=== PATIENT | female | born 1965 | race American Indian/Alaskan Native ===

== ENCOUNTER 2016-06-24 18:24 | Emergency (ER) | payer MEDICAID ==
[2016-06-24 19:56] VITALS: BP 158/94
[2016-06-24] MEDS ORDERED: TYLENOL PO ONE (22:41)
--- NOTE | 2016-06-25 02:22 | Emergency Department Report ---
- General Chief Complaint: Upper Respiratory Infection Stated Complaint: SORE THROAT Time Seen by Provider: 06/25/16 01:34 Source: patient Mode of arrival: Ambulatory Limitations: No Limitations - History of Present Illness Initial Comments: 50-year-old female past medical history asthma, diabetes, hypertension presents with complaint of 3 days of sinus congestion, sore throat, achiness generalized , runny nose. Patient states that she has family member at home with similar symptoms. Patient denies any chest pain palpitations, states she felt slightly short of breath yesterday but has since resolved now primarily complaining of nasal congestion and sore throat. Patient denies any nausea or vomiting, denies any dysuria, states she feels sinus pressure. MD Complaint: cough, sore throat, nasal congestion, sinus pain Onset/Timin -: days(s) Severity: moderate Quality: aching Improves With: nothing Worsens With: nothing Context: sick contacts Associated Symptoms: cough - Related Data Home Medications Medication Instructions Recorded Confirmed Last Taken Albuterol Sulfate [Ventolin HFA] 2 puff IH Q4H PRN 05/19/15 05/19/15 Unknown Carbidopa/Levodopa ER 50-200 1 each PO BID 05/19/15 05/19/15 Unknown [Sinemet ER 50/200] Fenofibrate [Tricor] 145 mg PO QDAY 05/19/15 05/19/15 Unknown Fluticasone Propionate [Flovent 50 mcg IH DAILY 05/19/15 05/19/15 Unknown Diskus] Furosemide [Lasix TAB] 40 mg PO QDAY 05/19/15 05/19/15 Unknown Hydroxyzine HCl 10 mg PO BID PRN 05/19/15 05/19/15 Unknown Lisinopril [Zestril TAB] 20 mg PO QDAY 05/19/15 05/19/15 Unknown Phentermine/Topiramate [Qsymia 1 each PO QDAY 05/19/15 05/19/15 Unknown 3.75 mg-23 mg] Ranitidine HCl [Acid Counselor Aid] 150 mg PO DAILY 05/19/15 05/19/15 Unknown metFORMIN [Glucophage] 500 mg PO BID 05/19/15 05/19/15 Unknown Copaxone (Nf) 20 mg SQ DAILY 05/20/15 05/20/15 05/18/15 10:00 20MG Previous Rx's Medication Instructions Recorded Last Taken Type Prednisone [predniSONE 10 mg 10 mg PO .TAPER #1 tab.ds.pk 05/25/15 Unknown Rx (6-Day Pack, 21 Tabs)] ALBUTEROL Inhaler [ProAir HFA 1 puff IH Q4H PRN #1 inha 06/25/16 Unknown Rx Inhaler] ALBUTEROL NEB's [Proventil 0.083% 2.5 mg IH TID PRN #1 box 06/25/16 Unknown Rx NEBS] Amoxicillin/K Clav Tab [Augmentin 1 tab PO Q12HR #14 tab 06/25/16 Unknown Rx 875 mg] Azelastine 0.1% (Nf) [Astelin (Nf)] 137 mcg NS QDAY PRN #1 bottle 06/25/16 Unknown Rx Fluticasone [Flonase] 1 spray NS QDAY #1 bottle 06/25/16 Unknown Rx Ibuprofen [Motrin] 400 mg PO Q8H PRN #20 tablet 06/25/16 Unknown Rx Allergies Allergy/AdvReac Type Severity Reaction Status Date / Time No Known Allergies Allergy Verified 04/07/14 21:17 ED Review of Systems ROS: Stated complaint: SORE THROAT Other details as noted in HPI Constitutional: denies: chills, fever Eyes: denies: eye pain, eye discharge, vision change ENT: congestion. denies: ear pain, throat pain Respiratory: denies: cough, shortness of breath, wheezing Cardiovascular: denies: chest pain, palpitations Endocrine: no symptoms reported Gastrointestinal: denies: abdominal pain, nausea, diarrhea Genitourinary: denies: urgency, dysuria, discharge Musculoskeletal: denies: back pain, joint swelling, arthralgia Skin: denies: rash, lesions Neurological: denies: headache, weakness, paresthesias Psychiatric: denies: anxiety, depression Hematological/Lymphatic: denies: easy bleeding, easy bruising ED Past Medical Hx - Past Medical History Hx Hypertension: Yes Hx CVA: Yes Hx Diabetes: Yes Hx Deep Vein Thrombosis: No Hx Pulmonary Embolism: No Hx GERD: Yes Hx Arthritis: Yes Hx Headaches / Migraines: Yes Hx Psychiatric Treatment: Yes (Depression) Hx Asthma: Yes Hx COPD: No Hx Tuberculosis: No Hx HIV: No Additional medical history: Hyperlipidemia, Multiple Sclerosis, Sleep apnea, MVP , Restless Leg Syndrome - Surgical History Hx Coronary Stent: No Hx Open Heart Surgery: No Hx Pacemaker: No Hx Internal Defibrillator: No Hx Cholecystectomy: No Hx Appendectomy: No Hx Breast Surgery: No Additional Surgical History: C-sections X2 - Social History Smoking Status: Never Smoker Substance Use Type: None - Medications Home Medications: Home Medications Medication Instructions Recorded Confirmed Last Taken Type Albuterol Sulfate [Ventolin HFA] 2 puff IH Q4H PRN 05/19/15 05/19/15 Unknown History Carbidopa/Levodopa ER 50-200 1 each PO BID 05/19/15 05/19/15 Unknown History [Sinemet ER 50/200] Fenofibrate [Tricor] 145 mg PO QDAY 05/19/15 05/19/15 Unknown History Fluticasone Propionate [Flovent 50 mcg IH DAILY 05/19/15 05/19/15 Unknown History Diskus] Furosemide [Lasix TAB] 40 mg PO QDAY 05/19/15 05/19/15 Unknown History Hydroxyzine HCl 10 mg PO BID PRN 05/19/15 05/19/15 Unknown History Lisinopril [Zestril TAB] 20 mg PO QDAY 05/19/15 05/19/15 Unknown History Phentermine/Topiramate [Qsymia 1 each PO QDAY 05/19/15 05/19/15 Unknown History 3.75 mg-23 mg] Ranitidine HCl [Acid Counselor Aid] 150 mg PO DAILY 05/19/15 05/19/15 Unknown History metFORMIN [Glucophage] 500 mg PO BID 05/19/15 05/19/15 Unknown History Copaxone (Nf) 20 mg SQ DAILY 05/20/15 05/20/15 05/18/15 10:00 History 20MG Prednisone [predniSONE 10 mg 10 mg PO .TAPER #1 tab.ds.pk 05/25/15 Unknown Rx (6-Day Pack, 21 Tabs)] ALBUTEROL Inhaler [ProAir HFA 1 puff IH Q4H PRN #1 inha 06/25/16 Unknown Rx Inhaler] ALBUTEROL NEB's [Proventil 0.083% 2.5 mg IH TID PRN #1 box 06/25/16 Unknown Rx NEBS] Amoxicillin/K Clav Tab [Augmentin 1 tab PO Q12HR #14 tab 06/25/16 Unknown Rx 875 mg] Azelastine 0.1% (Nf) [Astelin (Nf)] 137 mcg NS QDAY PRN #1 bottle 06/25/16 Unknown Rx Fluticasone [Flonase] 1 spray NS QDAY #1 bottle 06/25/16 Unknown Rx Ibuprofen [Motrin] 400 mg PO Q8H PRN #20 tablet 06/25/16 Unknown Rx ED Physical Exam - General Limitations: No Limitations General appearance: alert, in no apparent distress - Head Head exam: Present: atraumatic, normocephalic - Eye Eye exam: Present: normal appearance, PERRL, EOMI - ENT ENT exam: Present: mucous membranes moist, other (rhinorrhea) - Expanded ENT Exam Expanded Ear exam: Present: normal external inspection Mouth exam: Present: normal external inspection Teeth exam: Present: normal inspection Throat exam: Positive: normal inspection - Neck Neck exam: Present: normal inspection, full ROM - Respiratory Respiratory exam: Present: normal lung sounds bilaterally. Absent: respiratory distress - Cardiovascular Cardiovascular Exam: Present: regular rate, normal rhythm. Absent: systolic murmur, diastolic murmur, rubs, gallop - GI/Abdominal GI/Abdominal exam: Present: soft, normal bowel sounds - Extremities Exam Extremities exam: Present: normal inspection - Back Exam Back exam: Present: normal inspection - Neurological Exam Neurological exam: Present: alert, oriented X3 - Psychiatric Psychiatric exam: Present: normal affect, normal mood - Skin Skin exam: Present: warm, dry, intact, normal color. Absent: rash ED Course Vital Signs 06/24/16 06/24/16 19:55 20:15 Temperature 99 F 99 F Pulse Rate 90 90 Respiratory 20 18 Rate Blood Pressure 158/94 Blood Pressure 158/94 [Right] O2 Sat by Pulse 100 100 Oximetry ED Medical Decision Making - Medical Decision Making A/P: Acute sinusitis, URI, viral syndrome 1- Flonase, Azelastine, Motrin prn. As pt is diabetic will refrain from giving systemic steroids, will give intranasal instead for direct relief of sinus pressure 2- Augmentin BID x7 days 3- will refill albuterol inhaler and nebulizers 4- patient states she has primary care follow-up appointment this week Critical care attestation.: If time is entered above; I have spent that time in minutes in the direct care of this critically ill patient, excluding procedure time. ED Disposition Clinical Impression: Sinusitis, acute Qualifiers: Sinusitis location: frontal Recurrence: non-recurrent Qualified Code(s): J01.10 - Acute frontal sinusitis, unspecified Disposition: DISCHARGED TO HOME OR SELFCARE Is pt being admited?: No Does the pt Need Aspirin: No Condition: Stable Instructions: Sinusitis (ED) Prescriptions: ALBUTEROL Inhaler [ProAir HFA Inhaler] 1 puff IH Q4H PRN #1 inha PRN Reason: Wheezing ALBUTEROL NEB's [Proventil 0.083% NEBS] 2.5 mg IH TID PRN #1 box PRN Reason: Wheezing Amoxicillin/K Clav Tab [Augmentin 875 mg] 1 tab PO Q12HR #14 tab Azelastine 0.1% (Nf) [Astelin (Nf)] 137 mcg NS QDAY PRN #1 bottle PRN Reason: Congestion Fluticasone [Flonase] 1 spray NS QDAY #1 bottle Ibuprofen [Motrin] 400 mg PO Q8H PRN #20 tablet PRN Reason: Pain Referrals: [facility] [place] [Outside] - 3-5 Days Forms: Work/School Release Form(ED) Time of Disposition: 02:22
== END 2016-06-25 02:32 | disposition home or self-care (01) ==
LOC: ED 18:24
DX: J01.10 Acute frontal sinusitis, unspecified (principal); I10 Essential (primary) hypertension; I63.9 Cerebral infarction, unspecified; E11.9 Type 2 diabetes mellitus without complications; K21.9 Gastro-esophageal reflux disease without esophagitis; M19.90 Unspecified osteoarthritis, unspecified site; G43.909 Migraine, unspecified, not intractable, without status migrainosus; J45.909 Unspecified asthma, uncomplicated; E78.00 Pure hypercholesterolemia, unspecified
CPT/HCPCS: 87116; 87400; 87430; 99283

== ENCOUNTER 2017-06-19 17:12 | Outpatient (CLI) | payer MEDICAID ==
--- NOTE | 2017-06-19 21:20 | XRay Report ---
FINAL REPORT EXAM: XR KNEE BILAT 1-2V HISTORY: Osteoarthritis TECHNIQUE: Bilateral knees two views left and two views right PRIORS: None. FINDINGS: Left knee demonstrates medial tibiofemoral joint space narrowing and narrowing at the patellofemoral joint space. Few small marginal osteophytes are present. No evidence for joint effusion At the right knee there is mild medial tibiofemoral and patellofemoral joint space narrowing. No evidence for joint effusion There are no acute fractures or dislocations identified. IMPRESSION: Mild to moderate DJD greater on the left
== END 2017-06-19 17:13 | disposition home or self-care (01) ==
LOC: XRAY 17:12
PROVIDERS: ATTEND Orthopaedic Surgery
DX: M17.12 Unilateral primary osteoarthritis, left knee (principal)

== ENCOUNTER 2018-06-05 16:34 | Emergency (ER) | payer MEDICAID ==
--- NOTE | 2018-06-05 16:43 | Emergency Department Report ---
Chief Complaint: Upper Respiratory Infection Stated Complaint: HPB/HIGH GLUCOSE/VOMITING/HEADACHE Time Seen by Provider: 06/05/18 16:42 - HPI History of Present Illness: MSE completed To ED for treatment MSE screening note: Focused history and physical exam performed. Due to findings the following was ordered: ED Medical Decision Making - Lab Data Result diagrams: 06/05/18 17:52 ED Disposition for MSE Condition: Stable
[2018-06-05] MEDS ORDERED: ZOFRAN IV ONE (17:11)
[2018-06-05] MEDS ORDERED: MORPHINE IV ONE ×2 (17:11→18:41)
--- NOTE | 2018-06-05 17:14 | Emergency Department Report ---
HPI - General Chief Complaint: Upper Respiratory Infection Time Seen by Provider: 06/05/18 16:42 - HPI HPI: 52-year-old Afro-[place] female presents to the emergency department from home with complaint of nausea, vomiting, diarrhea, headache and body aches. The patient says that she woke up around 3 AM with the nausea and vomiting. She checked her blood sugar and blood pressure and she had elevated blood pressure. The blood sugar was slightly elevated "for me" at about 160. Throughout the morning and afternoon the patient has been experiencing some diarrhea, generalized headache and body aches mostly in the back and legs. She tried some type of nausea medication without any relief. She has a past medical history of asthma, COPD, CVA, diabetes, migraines, depression, multiple sclerosis. She has a primary care physician, Dr. Goncalves, and [facility] but she has not seen them regarding her symptoms. No recent travel or sick contacts at home. ED Past Medical Hx - Past Medical History Previous Medical History?: Yes Hx Hypertension: Yes Hx CVA: Yes Hx Diabetes: Yes Hx Deep Vein Thrombosis: No Hx Pulmonary Embolism: No Hx GERD: Yes Hx Arthritis: Yes Hx Headaches / Migraines: Yes Hx Psychiatric Treatment: Yes (Depression) Hx Asthma: Yes Hx COPD: No Hx Tuberculosis: No Hx HIV: No Additional medical history: Hyperlipidemia, Multiple Sclerosis, Sleep apnea, MVP, Restless Leg Syndrome - Surgical History Past Surgical History?: Yes Hx Coronary Stent: No Hx Open Heart Surgery: No Hx Pacemaker: No Hx Internal Defibrillator: No Hx Cholecystectomy: No Hx Appendectomy: No Hx Breast Surgery: No Additional Surgical History: C-sections X2 - Social History Smoking Status: Never Smoker Substance Use Type: None - Medications Home Medications: Home Medications Medication Instructions Recorded Confirmed Last Taken Type Albuterol Sulfate [Ventolin HFA] 2 puff IH Q4H PRN 05/19/15 05/19/15 Unknown History Carbidopa/Levodopa ER 50-200 1 each PO BID 05/19/15 05/19/15 Unknown History [Sinemet ER 50/200] Fenofibrate [Tricor] 145 mg PO QDAY 05/19/15 05/19/15 Unknown History Fluticasone Propionate [Flovent 50 mcg IH DAILY 05/19/15 05/19/15 Unknown History Diskus] Furosemide [Lasix TAB] 40 mg PO QDAY 05/19/15 05/19/15 Unknown History Lisinopril [Zestril TAB] 20 mg PO QDAY 05/19/15 05/19/15 Unknown History Phentermine/Topiramate [Qsymia 1 each PO QDAY 05/19/15 05/19/15 Unknown History 3.75 mg-23 mg] Ranitidine HCl [Acid Associate Material Handler] 150 mg PO DAILY 05/19/15 05/19/15 Unknown History hydrOXYzine HCl [Hydroxyzine HCl] 10 mg PO BID PRN 05/19/15 05/19/15 Unknown History metFORMIN [Glucophage] 500 mg PO BID 05/19/15 05/19/15 Unknown History Copaxone (Nf) 20 mg SQ DAILY 05/20/15 05/20/15 05/18/15 10:00 History 20MG Prednisone [predniSONE 10 mg 10 mg PO .TAPER #1 tab.ds.pk 05/25/15 Unknown Rx (6-Day Pack, 21 Tabs)] ALBUTEROL Inhaler (OR & NICU) 1 puff IH Q4H PRN #1 inha 06/25/16 Unknown Rx [ProAir HFA Inhaler] ALBUTEROL NEB's [Proventil 0.083% 2.5 mg IH TID PRN #1 box 06/25/16 Unknown Rx NEBS] Amoxicillin/K Clav Tab [Augmentin 1 tab PO Q12HR #14 tab 06/25/16 Unknown Rx 875 mg] Azelastine 0.1% (Nf) [Astelin (Nf)] 137 mcg NS QDAY PRN #1 bottle 06/25/16 Unknown Rx Fluticasone [Flonase] 1 spray NS QDAY #1 bottle 06/25/16 Unknown Rx Ibuprofen [Motrin] 400 mg PO Q8H PRN #20 tablet 06/25/16 Unknown Rx HYDROcodone/APAP 5-325 [Wilberforce 1 each PO Q6HR PRN #10 tablet 06/05/18 Unknown Rx 5/325] Ondansetron [Zofran Odt] 4 mg PO Q8HR PRN #12 tab.rapdis 06/05/18 Unknown Rx Oseltamivir [Tamiflu] 75 mg PO BID #10 capsule 06/05/18 Unknown Rx ED Review of Systems ROS: Stated complaint: HPB/HIGH GLUCOSE/VOMITING/HEADACHE Other details as noted in HPI Comment: All other systems reviewed and negative Constitutional: chills. denies: fever Eyes: denies: eye pain, vision change ENT: denies: ear pain, throat pain Respiratory: denies: cough, shortness of breath Cardiovascular: denies: chest pain, palpitations Gastrointestinal: nausea, vomiting, diarrhea Genitourinary: denies: dysuria, discharge Musculoskeletal: back pain, myalgia Skin: denies: rash, change in color Neurological: headache. denies: numbness, paresthesias Physical Exam - Physical Exam Vital Signs: Vital Signs 06/05/18 16:50 Temperature 99.9 F H Pulse Rate 122 H Respiratory 20 Rate Blood Pressure 182/89 O2 Sat by Pulse 96 Oximetry Physical Exam: GENERAL: The patient is well-developed well-nourished. HEENT: Normocephalic. Atraumatic. Patient has moist mucous membranes. EYES: Extraocular motions are intact. Pupils are equal and reactive to light bilaterally. No nystagmus. NECK: Supple. Trachea is midline. CHEST/LUNGS: Clear to auscultation. There is no respiratory distress noted. HEART/CARDIOVASCULAR: Regular. There is mild to moderate tachycardia. There is no obvious murmur. ABDOMEN: Abdomen is soft, nontender. Patient has normal bowel sounds. There is no abdominal distention. SKIN: Skin is warm and dry. NEURO: The patient is awake, alert, and oriented. The patient is cooperative. The patient has no focal neurologic deficits. The patient has normal speech. Cranial nerves II through XII grossly intact. MUSCULOSKELETAL: There is no tenderness or deformity. There is no limitation range of motion. There is no evidence of acute injury. ED Course Vital Signs 06/05/18 16:50 Temperature 99.9 F H Pulse Rate 122 H Respiratory 20 Rate Blood Pressure 182/89 O2 Sat by Pulse 96 Oximetry ED Medical Decision Making - Lab Data Result diagrams: 06/05/18 17:52 06/05/18 17:52 - EKG Data -: EKG Interpreted by Me EKG shows normal: sinus rhythm, axis (left axis deviation), intervals, QRS complexes (Q waves to the anterior leads, left anterior fascicular block), ST-T waves Rate: tachycardia (117 bpm) - EKG Data When compared to previous EKG there are: previous EKG unavailable Interpretation: other (sinus tachycardia, left axis deviation, Q waves to the anterior leads, left anterior fascicular block) - Radiology Data Radiology results: report reviewed CT of the head without contrast does not show any bleed, shift, mass, ischemia or any other acute process. - Medical Decision Making This patient presents to the emergency department with a complaint of nausea, vomiting, headache, body aches that started last night. Patient's labs have been unremarkable including a CBC, metabolic panel and LFTs. Patient was given IV fluid resuscitation, antiemetics and pain medication. She still continued to complain of a headache so a CT scan of the head without contrast was done that did not show any bleed, shift, mass, ischemia, or any other acute process. Eventually the patient says that she is feeling much better. Has been no there's been no further episodes of nausea or vomiting in the emergency department. She does not have any focal, motor or sensory deficits in her cranial nerves have been intact. Prior to discharge, the patient was seen a mbulatory in both appears and feels stable. All this appears consistent with a viral syndrome. It is possible, given the patient's borderline low fever, that the patient may have influenza. The patient has been given Zofran ODT and Tamiflu as a prescription. She is instructed to follow up with her primary care physician. She will return to the ER with any worsening of her symptoms or any acute distress. - Differential Diagnosis viral syndrome, influenza, gastroenteritis, food poisoning, tension headach Critical Care Time: No Critical care attestation.: If time is entered above; I have spent that time in minutes in the direct care of this critically ill patient, excluding procedure time. ED Disposition Clinical Impression: Viral syndrome Headache Qualifiers: Headache type: unspecified Headache chronicity pattern: unspecified pattern Intractability: not intractable Qualified Code(s): R51 - Headache Nausea & vomiting Qualifiers: Vomiting type: unspecified Vomiting Intractability: non-intractable Qualified Code(s): R11.2 - Nausea with vomiting, unspecified Disposition: DC-01 TO HOME OR SELFCARE Is pt being admited?: No Condition: Stable Instructions: Acute Headache (ED), Acute Nausea and Vomiting (ED), Viral Syndrome (ED) Additional Instructions: Please increase your oral rehydration. Follow up with a primary care physician in the next few days. Return to the emergency Department with any worsening of your symptoms or any acute distress. You have been prescribed a medication that can be sedating. Therefore, this medication cannot be taken prior to driving, working, being responsible for children, and cannot be mixed with alcohol of any quantity. Prescriptions: HYDROcodone/APAP 5-325 [Wilberforce 5/325] 1 each PO Q6HR PRN #10 tablet PRN Reason: Pain Ondansetron [Zofran Odt] 4 mg PO Q8HR PRN #12 tab.rapdis PRN Reason: Nausea Oseltamivir [Tamiflu] 75 mg PO BID #10 capsule Referrals: PRIMARY CARE, [Primary Care Provider] - 2-3 Days Time of Disposition: 22:11
[2018-06-05 18:11] LABS: Hematocrit 38.9 % (30.3-42.9); Hemoglobin 13.4 gm/dl (10.1-14.3); Mean Corpuscular HGB Conc 35 % (30-34); Mean Corpuscular Volume 90 fl (79-97); Platelet Count 306 K/mm3 (140-440); Red Blood Count 4.35 M/mm3 (3.65-5.03); Red Cell Distribution Width 13.2 % (13.2-15.2)
[2018-06-05 18:35] LABS: Alanine Aminotransferase 11 units/L (7-56); Albumin 3.7 g/dL (3.9-5); BUN/Creatinine Ratio 14; Blood Urea Nitrogen 7 mg/dL (7-17); Calcium 8.1 mg/dL (8.4-10.2); Hemolysis Index 10
[2018-06-05] MEDS ORDERED: REGLAN IV ONE (18:41)
[2018-06-05] MEDS ORDERED: NACL 0.9% 1000 ML 1,000 ML IV ONE ×2 (18:41→21:32)
[2018-06-05] MEDS ORDERED: TYLENOL PO ONE (19:37)
--- NOTE | 2018-06-05 20:58 | Cat Scan Report ---
FINAL REPORT EXAM: CT HEAD/BRAIN WO CON HISTORY: headache TECHNIQUE: CT was performed from the foramen magnum through the vertex in the axial plane without th e use of intravenous contrast. PRIORS: None. FINDINGS: The reagan/white matter attenuation pattern is normal. There is no mass lesion or mass effect. There ar e no abnormal extra-axial fluid collections. There is no evidence of acute intracranial hemorrhage or infarct. The ventricles are of normal size and configuration. The skull and orbits are unremarkable . The visualized paranasal sinuses are clear. IMPRESSION: Normal CT of the head.
[2018-06-05] MEDS ORDERED: TORADOL IV ONE (21:03)
[2018-06-05] MEDS ORDERED: DILAUDID IV ONE (21:03)
[2018-06-05 23:38] VITALS: BP 104/42
== END 2018-06-05 23:38 | disposition home or self-care (01) ==
LOC: ED 16:34
DX: B34.9 Viral infection, unspecified (principal); R11.2 Nausea with vomiting, unspecified; I10 Essential (primary) hypertension; E11.9 Type 2 diabetes mellitus without complications; K21.9 Gastro-esophageal reflux disease without esophagitis; M19.90 Unspecified osteoarthritis, unspecified site; G43.909 Migraine, unspecified, not intractable, without status migrainosus; F32.9 Major depressive disorder, single episode, unspecified; J45.909 Unspecified asthma, uncomplicated; E78.5 Hyperlipidemia, unspecified; G47.30 Sleep apnea, unspecified; G35 Multiple sclerosis
CPT/HCPCS: 36415; 70450; 80053; 82805; 83690; 84484; 85027; 93005; 93010; 96361; 96374; 96375; 96376; 99284; J1170; J1885; J2270; J2405; J2765; J7030

== ENCOUNTER 2019-03-23 21:21 | Inpatient (IN) | payer MEDICARE ==
[2019-03-23] MEDS ORDERED: IPRATROPIUM/ALBUTEROL SULFATE 3 ML AMPUL.NEB IH ONE (21:53)
--- NOTE | 2019-03-23 21:53 | Event Note ---
ED Screening Note Date of service: 03/23/19 Time: 21:52 ED Screening Note: 53 y o f with hx of asthma presenst with coughing and sob This initial assessment/diagnostic orders/clinical plan/treatment(s) is/are subject to change based on patients health status, clinical progression and re-assessment by fellow clinical providers in the ED. Further treatment and workup at subsequent clinical providers discretion. Patient/guardian urged not to elope from the ED as their condition may be serious if not clinically assessed and managed. Initial orders include: cxr steroids duoneb acc eval
[2019-03-23] MEDS ORDERED: guaiFENesin 200 MG TAB PO ONE (21:54)
[2019-03-23] MEDS ORDERED: methylPREDNISolone Sod Succinate 125 MG/2 ML INJ IM ONE (21:54)
--- NOTE | 2019-03-23 22:45 | XRay Report ---
CHEST 2 VIEWS INDICATION / CLINICAL INFORMATION: Shortness of breath. Headache, sore throat and productive cough. Wheezing. COMPARISON: 05/19/2015. FINDINGS: SUPPORT DEVICES: None. HEART / MEDIASTINUM: The heart size and pulmonary vasculature are normal. LUNGS / PLEURA: No significant pulmonary or pleural abnormality. No pneumothorax. ADDITIONAL FINDINGS: No significant additional findings. IMPRESSION: No acute abnormality or significant change. Signer Name: Robbie Amato MD Signed: 03/23/2019 10:41 PM Workstation Name: [id number]
[2019-03-24] MEDS ORDERED: IPRATROPIUM/ALBUTEROL SULFATE 3 ML AMPUL.NEB IH ONE ×4 (00:14→04:03)
[2019-03-24] MEDS ORDERED: methylPREDNISolone Sod Succinate 125 MG/2 ML INJ IV ONE (00:14)
[2019-03-24 00:41] LABS: Basophils # (Auto) 0.1 K/mm3 (0.0-0.1); Basophils % (Auto) 0.9 % (0.0-1.8); Eosinophils # (Auto) 0.5 K/mm3 (0.0-0.4); Eosinophils % (Auto) 4.1 % (0.0-4.3); Hemoglobin 12.6 gm/dl (10.1-14.3); Lymphocytes # (Auto) 3.4 K/mm3 (1.2-5.4); Lymphocytes % (Auto) 30.9 % (13.4-35.0); Mean Corpuscular HGB Conc 34 % (30-34); Mean Corpuscular Volume 91 fl (79-97); Monocytes # (Auto) 0.7 K/mm3 (0.0-0.8); Monocytes % (Auto) 6.2 % (0.0-7.3); Platelet Count 336 K/mm3 (140-440); Red Blood Count 4.05 M/mm3 (3.65-5.03)
[2019-03-24 01:06] LABS: Alanine Aminotransferase 17 units/L (7-56); Albumin 3.7 g/dL (3.9-5); BUN/Creatinine Ratio 17; Blood Urea Nitrogen 10 mg/dL (7-17); Calcium 8.6 mg/dL (8.4-10.2); Hemolysis Index 13
[2019-03-24] MEDS ORDERED: KETOROLAC 30 MG/1 ML INJ IV ONE (01:47)
[2019-03-24] MEDS ORDERED: MAGNESIUM SULFATE 2 GM/50 ML BAG IV ONE (03:43)
--- NOTE | 2019-03-24 03:53 | Emergency Department Report ---
ED Shortness of Breath HPI - General Chief Complaint: Adult Asthma Stated Complaint: MARTE ,SORE THROAT,DIFF BREATHING Source: patient Mode of arrival: Ambulatory Limitations: No Limitations - History of Present Illness Initial Comments: Patient is a 53-year-old -[place] female with a history of asthma, CHF, hypertension, and lar-xjvnomc-xqnrlcyzq diabetes who presented to the ED with complaint of acute onset persistent shortness of breath, nasal and sinus congestion, persistent cough with yellow sputum, persistent headache and generalized weakness for the last 1 week, worse in the last 2 days despite using her home based albuterol nebulizers and inhalers. The patient also complains of chest tightness and pressure for the last 2 days. Patient denies fever, chills, nausea, vomiting, abdominal pain, dizziness, syncope, palpitations, dysuria, urinary frequency and urgency, seizures or sore throat. MD Complaint: shortness of breath, cough, chest pain, "asthma attack" -: Sudden, days(s) (3) Severity: severe Pain Scale: 7 Quality: aching Consistency: constant Improves With: nothing, other (used her nebulizers at home with no relief) Worsens With: coughing Known History Of: asthma, diabetes Context: recent URI Associated Symptoms: denies other symptoms, chest pain, cough, sputum production Treatments Prior to Arrival: bronchodilator - Related Data Home Oxygen Therapy: No Home Medications Medication Instructions Recorded Confirmed Last Taken Albuterol Sulfate [Ventolin HFA] 2 puff IH Q4H PRN 05/19/15 05/19/15 Unknown Carbidopa/Levodopa ER 50-200 1 each PO BID 05/19/15 05/19/15 Unknown [Sinemet ER 50/200] Fenofibrate [Tricor] 145 mg PO QDAY 05/19/15 05/19/15 Unknown Fluticasone Propionate [Flovent 50 mcg IH DAILY 05/19/15 05/19/15 Unknown Diskus] Furosemide [Lasix TAB] 40 mg PO QDAY 05/19/15 05/19/15 Unknown Lisinopril [Zestril TAB] 20 mg PO QDAY 05/19/15 05/19/15 Unknown Phentermine/Topiramate [Qsymia 1 each PO QDAY 05/19/15 05/19/15 Unknown 3.75 mg-23 mg] Ranitidine HCl [Acid Front End Loader Operator] 150 mg PO DAILY 05/19/15 05/19/15 Unknown hydrOXYzine HCl [Hydroxyzine HCl] 10 mg PO BID PRN 05/19/15 05/19/15 Unknown metFORMIN [Glucophage] 500 mg PO BID 05/19/15 05/19/15 Unknown Copaxone (Nf) 20 mg SQ DAILY 05/20/15 05/20/15 05/18/15 10:00 20 MG Previous Rx's Medication Instructions Recorded Last Taken Type Prednisone [predniSONE 10 mg 10 mg PO .TAPER #1 tab.ds.pk 05/25/15 Unknown Rx (6-Day Pack, 21 Tabs)] ALBUTEROL Inhaler (OR & NICU) 1 puff IH Q4H PRN #1 inha 06/25/16 Unknown Rx [ProAir HFA Inhaler] ALBUTEROL NEB's [Proventil 0.083% 2.5 mg IH TID PRN #1 box 06/25/16 Unknown Rx NEBS] Amoxicillin/K Clav Tab [Augmentin 1 tab PO Q12HR #14 tab 06/25/16 Unknown Rx 875 mg] Azelastine 0.1% (Nf) [Astelin (Nf)] 137 mcg NS QDAY PRN #1 bottle 06/25/16 Unknown Rx Fluticasone [Flonase] 1 spray NS QDAY #1 bottle 06/25/16 Unknown Rx Ibuprofen [Motrin] 400 mg PO Q8H PRN #20 tablet 06/25/16 Unknown Rx HYDROcodone/APAP 5-325 [Bulan 1 each PO Q6HR PRN #10 tablet 06/05/18 Unknown Rx 5/325] Ondansetron [Zofran Odt] 4 mg PO Q8HR PRN #12 tab.rapdis 06/05/18 Unknown Rx Oseltamivir [Tamiflu] 75 mg PO BID #10 capsule 06/05/18 Unknown Rx Allergies Allergy/AdvReac Type Severity Reaction Status Date / Time No Known Allergies Allergy Verified 04/07/14 21:17 ED Review of Systems ROS: Stated complaint: MARTE ,SORE THROAT,DIFF BREATHING Other details as noted in HPI Constitutional: denies: chills, fever Eyes: denies: eye pain, eye discharge, vision change ENT: congestion. denies: ear pain, throat pain Respiratory: cough, shortness of breath, wheezing Cardiovascular: chest pain. denies: palpitations Endocrine: no symptoms reported Gastrointestinal: denies: abdominal pain, nausea, vomiting, diarrhea, hematochezia Genitourinary: denies: urgency, dysuria, discharge Musculoskeletal: denies: back pain, joint swelling, arthralgia Skin: denies: rash, lesions Neurological: headache. denies: weakness, paresthesias Psychiatric: denies: anxiety, depression Hematological/Lymphatic: denies: easy bleeding, easy bruising ED Past Medical Hx - Past Medical History Previous Medical History?: Yes Hx Hypertension: Yes Hx CVA: Yes Hx Diabetes: Yes Hx Deep Vein Thrombosis: No Hx Pulmonary Embolism: No Hx GERD: Yes Hx Arthritis: Yes Hx Headaches / Migraines: Yes Hx Psychiatric Treatment: Yes (Depression) Hx Asthma: Yes Hx COPD: No Hx Tuberculosis: No Hx HIV: No Additional medical history: Hyperlipidemia, Multiple Sclerosis, Sleep apnea, MVP, Restless Leg Syndrome - Surgical History Hx Coronary Stent: No Hx Open Heart Surgery: No Hx Pacemaker: No Hx Internal Defibrillator: No Hx Cholecystectomy: No Hx Appendectomy: No Hx Breast Surgery: No Additional Surgical History: C-sections X2 - Social History Smoking Status: Former Smoker Substance Use Type: Alcohol - Medications Home Medications: Home Medications Medication Instructions Recorded Confirmed Last Taken Type Albuterol Sulfate [Ventolin HFA] 2 puff IH Q4H PRN 05/19/15 05/19/15 Unknown H istory Carbidopa/Levodopa ER 50-200 1 each PO BID 05/19/15 05/19/15 Unknown History [Sinemet ER 50/200] Fenofibrate [Tricor] 145 mg PO QDAY 05/19/15 05/19/15 Unknown History Fluticasone Propionate [Flovent 50 mcg IH DAILY 05/19/15 05/19/15 Unknown History Diskus] Furosemide [Lasix TAB] 40 mg PO QDAY 05/19/15 05/19/15 Unknown History Lisinopril [Zestril TAB] 20 mg PO QDAY 05/19/15 05/19/15 Unknown History Phentermine/Topiramate [Qsymia 1 each PO QDAY 05/19/15 05/19/15 Unknown History 3.75 mg-23 mg] Ranitidine HCl [Acid Front End Loader Operator] 150 mg PO DAILY 05/19/15 05/19/15 Unknown History hydrOXYzine HCl [Hydroxyzine HCl] 10 mg PO BID PRN 05/19/15 05/19/15 Unknown History metFORMIN [Glucophage] 500 mg PO BID 05/19/15 05/19/15 Unknown History Copaxone (Nf) 20 mg SQ DAILY 05/20/15 05/20/15 05/18/15 10:00 History 20 MG Prednisone [predniSONE 10 mg 10 mg PO .TAPER #1 tab.ds.pk 05/25/15 Unknown Rx (6-Day Pack, 21 Tabs)] ALBUTEROL Inhaler (OR & NICU) 1 puff IH Q4H PRN #1 inha 06/25/16 Unknown Rx [ProAir HFA Inhaler] ALBUTEROL NEB's [Proventil 0.083% 2.5 mg IH TID PRN #1 box 06/25/16 Unknown Rx NEBS] Amoxicillin/K Clav Tab [Augmentin 1 tab PO Q12HR #14 tab 06/25/16 Unknown Rx 875 mg] Azelastine 0.1% (Nf) [Astelin (Nf)] 137 mcg NS QDAY PRN #1 bottle 06/25/16 Unknown Rx Fluticasone [Flonase] 1 spray NS QDAY #1 bottle 06/25/16 Unknown Rx Ibuprofen [Motrin] 400 mg PO Q8H PRN #20 tablet 06/25/16 Unknown Rx HYDROcodone/APAP 5-325 [Bulan 1 each PO Q6HR PRN #10 tablet 06/05/18 Unknown Rx 5/325] Ondansetron [Zofran Odt] 4 mg PO Q8HR PRN #12 tab.rapdis 06/05/18 Unknown Rx Oseltamivir [Tamiflu] 75 mg PO BID #10 capsule 06/05/18 Unknown Rx ED Physical Exam - General Limitations: No Limitations General appearance: alert, in no apparent distress, anxious - Head Head exam: Present: atraumatic, normocephalic, normal inspection - Eye Eye exam: Present: normal appearance, PERRL, EOMI - ENT ENT exam: Present: normal orophraynx, mucous membranes moist, TM's normal bilaterally, normal external ear exam, other (grossly congested nasal passages) - Neck Neck exam: Present: normal inspection, full ROM. Absent: tenderness - Respiratory Respiratory exam: Present: wheezes (diffuse coarse audible wheezes throughout). Absent: respiratory distress, rales, rhonchi, chest wall tenderness, accessory muscle use, decreased breath sounds, prolonged expiratory - Cardiovascular Cardiovascular Exam: Present: regular rate, normal rhythm, normal heart sounds. Absent: systolic murmur, diastolic murmur, rubs, gallop - GI/Abdominal GI/Abdominal exam: Present: soft, normal bowel sounds. Absent: distended, guarding, hyperactive bowel sounds, hypoactive bowel sounds, organomegaly - Extremities Exam Extremities exam: Present: normal inspection, full ROM, normal capillary refill - Back Exam Back exam: Present: normal inspection, full ROM. Absent: tenderness, CVA t enderness (L), muscle spasm, vertebral tenderness - Neurological Exam Neurological exam: Present: alert, oriented X3, CN II-XII intact, normal gait, reflexes normal - Psychiatric Psychiatric exam: Present: normal affect, normal mood - Skin Skin exam: Present: warm, dry, intact, normal color. Absent: rash ED Course Vital Signs 03/23/19 03/24/19 21:48 02:02 Temperature 98.5 F Pulse Rate 88 Respiratory 20 18 Rate Blood Pressure 148/76 O2 Sat by Pulse 98 Oximetry ED Medical Decision Making - Lab Data Result diagrams: 03/24/19 00:28 03/24/19 00:28 - EKG Data EKG shows normal: sinus rhythm Rate: normal - EKG Data 03/24/19 03:59 EKG shows normal sinus rhythm with ventricular rate of 91 bpm, no ST or T-wave abnormalities noted on EKG. - Radiology Data Radiology results: report reviewed, image reviewed Chest x-ray shows no acute cardiopulmonary abdomen is or pneumonitis. - Medical Decision Making This is a 53-year-old -[place] female with a history of asthma, CHF, hypertension and pro-cufibnd-ddlbqjvtg diabetes who presented to the ED, shortness of breath, chest tightness and pressure, audible wheezing and cough productive of phlegm for the last 1 week, worse in the last 2 days. In the ED, patient is alert and oriented 3 and is not in distress and appears to be uncomfortable and anxious. Vital signs are stable in triage with oxygen saturation of 98% in room air. Lab test results were reviewed and are all nonactionable including initial and repeat troponin levels. Patient received 3 DuoNeb treatments in the ED last Solu-Medrol 125 mg IV and was also treated for pain. On reevaluation, the wheezing is persistent audibly and patient stated that she is suicidal breath despite the treatment she has received sulfa. Patient also received magnesium sulfate 2 g IV 1. Based on the fact that the patient has not done around as expected with her ED treatment, patient was admitted to the hospital after discussing the patient's case with the ospitalist physician data conversion analyst Dr. Davis who advised that ED bridge admission orders be placed until he gets to see the patient. Patient agreed with the plan of care. - Differential Diagnosis Pneumonia, asthma, CHF, ACS, URI Critical care attestation.: If time is entered above; I have spent that time in minutes in the direct care of this critically ill patient, excluding procedure time. ED Disposition Clinical Impression: Shortness of breath, Feeling of chest tightness, Acute upper respiratory infect ion Asthma exacerbation Qualifiers: Asthma severity: moderate Asthma persistence: persistent Qualified Code(s): J45.41 - Moderate persistent asthma with (acute) exacerbation Disposition: OP ADMIT IP TO THIS HOSP Is pt being admited?: Yes Does the pt Need Aspirin: Yes Condition: Stable Instructions: Asthma (ED) Referrals: PRIMARY CARE, [Primary Care Provider] - 3-5 Days Time of Disposition: 03:53 Print Language: LITHUANIAN
[2019-03-24] MEDS ORDERED: cefTRIAXone/NS 1 GM/50 ML 1 GM/50 ML BAG IV ONE (04:02)
[2019-03-24] MEDS ORDERED: AZITHROMYCIN 250 MG TAB PO ONE (04:02)
[2019-03-24] MEDS ORDERED: ASPIRIN 325 MG TAB PO ONE (04:03)
[2019-03-24 04:38] LABS: INR 0.95 (0.87-1.13); Partial Thromboplastin Time 25.9 Sec. (24.2-36.6)
[2019-03-24] MEDS ORDERED: BUTALB/ACETAMINOPHEN/CAFFEINE TAB PO ONE (05:04)
[2019-03-24] MEDS ORDERED: ALBUTEROL 2.5 MG/3 ML NEBU IH ONE (07:31)
--- NOTE | 2019-03-24 08:00 | History and Physical Report ---
History of Present Illness Date of examination: 03/24/19 Date of admission: 03/24/19 06:33 Chief complaint: Worsening shortness of breath History of present illness: 53-year-old morbidly obese female patient with significant past medical history of bronchial asthma congestive heart failure hypertension type 2 diabetes mellitus presented to the emergency room with worsening shortness of breath upper respiratory symptoms and nasal congestion and with productive cough Patient also complains of headache and generalized weakness has been having the symptoms for the past 5 to 7 days worse since yesterday Patient did not get any response with home nebulizers and inhalers Patient complains of chest tightness and congestion Denies nausea vomiting or abdominal pain Denies dizziness weakness or numbness Past History Past Medical History: diabetes, hypertension, other (Bronchial asthma, restless leg syndrome) Past Surgical History: No surgical history Social history: lives with family. denies: smoking, alcohol abuse, prescription drug abuse Family history: hypertension Medications and Allergies Allergies Allergy/AdvReac Type Severity Reaction Status Date / Time No Known Allergies Allergy Verified 04/07/14 21:17 Home Medications Medication Instructions Recorded Confirmed Last Taken Type Carbidopa/Levodopa ER 50-200 1 each PO BID 05/19/15 03/24/19 Unknown History [Sinemet ER 50/200] Fenofibrate [Tricor] 145 mg PO QDAY 05/19/15 03/24/19 Unknown History Furosemide [Lasix TAB] 40 mg PO QDAY 05/19/15 03/24/19 Unknown History Lisinopril [Zestril TAB] 40 mg PO QDAY 05/19/15 03/24/19 Unknown History metFORMIN [Glucophage] 500 mg PO BID 05/19/15 03/24/19 Unknown History Albuterol Sulfate [Proventil Hfa] 6.7 gm IH Q6HR PRN 03/24/19 03/24/19 Unknown History Atenolol [Tenormin] 100 mg PO DAILY 03/24/19 03/24/19 Unknown History Benzonatate [Tessalon Perles] 100 mg PO Q8HR PRN 03/24/19 03/24/19 Unknown History Fluticasone [Flonase] 2 spray NS QDAY 03/24/19 03/24/19 Unknown History Glatiramer Acetate 20 mg SQ QDAY 03/24/19 03/24/19 Unknown History Ipratropium (Nf) [Atrovent] 2 puff IH Q6HR 03/24/19 03/24/19 Unknown History Loratadine 10 mg PO QDAY PRN 03/24/19 03/24/19 Unknown History Meclizine [Antivert] 25 mg PO TID PRN 03/24/19 03/24/19 Unknown History Omeprazole 40 mg PO QDAY 03/24/19 03/24/19 Unknown History hydrOXYzine HCL [Atarax] 25 mg PO BID PRN 03/24/19 03/24/19 Unknown History Review of Systems Constitutional: fatigue, weakness, no weight loss, no weight gain Ears, nose, mouth and throat: nasal congestion, nasal discharge Cardiovascular: chest pain, shortness of breath Respiratory: cough with sputum, shortness of breath, congestion, wheezing Gastrointestinal: no abdominal pain, no nausea, no vomiting Musculoskeletal: no myalgias, no arthritis Integumentary: no rash, no lesions Neurological: no seizures, no syncope, no tremors Psychiatric: no anxiety, no depression Endocrine: no cold intolerance, no heat intolerance Hematologic/Lymphatic: no easy bruising, no easy bleeding Allergic/Immunologic: no urticaria, no allergic rhinitis Exam - Constitutional Vitals: Temp Pulse Resp BP Pulse Ox 98.5 F 93 H 16 147/87 97 03/23/19 21:48 03/24/19 07:45 03/24/19 07:45 03/24/19 04:57 03/24/19 07:46 General appearance: Present: mild distress, well-nourished, obese (Morbidly obese) - EENT Eyes: Present: EOM intact - Neck Neck: Present: supple, normal ROM - Respiratory Respiratory effort: normal Respiratory: bilateral: diminished, wheezing, negative: rales, rhonchi - Cardiovascular Rhythm: regular Heart Sounds: Present: S1 & S2 - Extremities Extremities: no ischemia, No edema - Abdominal General gastrointestinal: Present: soft, non-tender, non-distended, normal bowel sounds - Integumentary Integumentary: Present: clear, warm - Musculoskeletal Musculoskeletal: strength equal bilaterally - Psychiatric Psychiatric: appropriate mood/affect, cooperative - Neurologic Neurologic: CNII-XII intact, moves all extremities Results - Labs CBC & Chem 7: 03/24/19 00:28 03/24/19 00:28 Labs: Abnormal lab results 03/24/19 03/24/19 03/24/19 Range/Units 00:28 00:28 07:43 WBC 11.1 H (4.5-11.0) K/mm3 RDW 13.0 L (13.2-15.2) % Eos # 0.5 H (0.0-0.4) K/mm3 Creatinine 0.6 L (0.7-1.2) mg/dL POC Glucose 246 H (70-105) Albumin 3.7 L (3.9-5) g/dL Assessment and Plan --Acute hypoxic respiratory failure; Oxygen titrate O2 sats to more than 90% Nebulizers, IV steroids, IV antibiotics, inhalation steroids Cough medicine --Acute exacerbation of bronchial asthma Oxygen, duo nebs, IV steroids, IV antibiotics Supportive care --Acute bronchitis; bronchodilators IV antibiotics, cough medicine --Hypertension; moderate control Continue current antihypertensives and PRN medications --Morbid obesity; BMI 43.1 Needs weight reduction when medically stable --Possible obstructive sleep apnea; CPAP BiPAP at night as needed, patient needs outpatient sleep study To rule out OSCAR --DVT prophylaxis; Lovenox Monitor closely and adjust management as needed Plan of care reviewed with the patient and her nurse Disposition; discharge home when medically stable Evaluate for home oxygen at discharge
[2019-03-24] MEDS ORDERED: BUDESONIDE 0.5 MG/2 ML NEBU IH ONE (08:02)
[2019-03-24] MEDS ORDERED: LORATADINE 10 MG PO PRN (08:09)
[2019-03-24] MEDS ORDERED: ALBUTEROL 8.5 GM INHALATION IH PRN (08:09)
[2019-03-24] MEDS ORDERED: BENZONATATE 100 MG CAP PO PRN (08:09)
[2019-03-24] MEDS ORDERED: hydrOXYzine HCL 25 MG TAB PO PRN (08:09)
[2019-03-24] MEDS ORDERED: MECLIZINE 25 MG TAB PO PRN (08:09)
[2019-03-24] MEDS ORDERED: LORATADINE (NF) 10 MG TAB PO PRN (08:22)
[2019-03-24] MEDS: metFORMIN 500 MG TAB PO SCH ×2 (08:55→18:04)
[2019-03-24] MEDS ORDERED: GLATIRAMER ACETATE 20 MG SQ SCH (10:00)
[2019-03-24] MEDS ORDERED: NON-FORMULARY EACH (Atenolol [Tenormin] 100 MG) PO SCH (10:00)
[2019-03-24] MEDS ORDERED: NON-FORMULARY EACH (Omeprazole [Omeprazole] 40 MG) PO SCH (10:00)
[2019-03-24] MEDS ORDERED: LISINOPRIL 20 MG TAB PO SCH (10:00)
[2019-03-24] MEDS: methylPREDNISolone Sod Succinate 125 MG/2 ML INJ IV SCH ×2 (10:27→18:03)
[2019-03-24] MEDS: PANTOPRAZOLE 40 MG TAB PO SCH (10:27)
[2019-03-24] MEDS: CARBIDOPA PO SCH ×2 (10:28→22:27)
[2019-03-24] MEDS: LEVODOPA PO SCH ×2 (10:28→22:27)
[2019-03-24] MEDS: atenoloL 50 MG TAB PO SCH (10:29)
[2019-03-24] MEDS: LISINOPRIL 40 MG TAB PO SCH (10:30)
[2019-03-24] MEDS: FUROSEMIDE 40 MG TAB PO SCH (10:30)
[2019-03-24] MEDS: FENOFIBRATE 145 MG TAB PO SCH (10:30)
[2019-03-24] MEDS: FLUTICASONE PROPIONATE NASAL SPRAY 16 GM NS SCH (11:49)
[2019-03-24] MEDS: INSULIN LISPRO 100 UNIT/ML SUB-Q SCH ×3 (12:23→22:31)
[2019-03-24] MEDS: IPRATROPIUM/ALBUTEROL SULFATE 3 ML AMPUL.NEB IH SCH ×3 (13:43→20:02)
[2019-03-24] MEDS ORDERED: ALBUTEROL 2.5 MG/3 ML NEBU IH PRN (14:00)
[2019-03-24] MEDS: BUDESONIDE 0.5 MG/2 ML NEBU IH SCH (20:02)
[2019-03-24] MEDS: ENOXAPARIN 40 MG/0.4 ML INJ SUB-Q SCH (22:27)
[2019-03-25] MEDS: methylPREDNISolone Sod Succinate 125 MG/2 ML INJ IV SCH ×5 (00:15→23:12)
[2019-03-25] MEDS: BUDESONIDE 0.5 MG/2 ML NEBU IH SCH ×2 (07:37→20:50)
[2019-03-25] MEDS: IPRATROPIUM/ALBUTEROL SULFATE 3 ML AMPUL.NEB IH SCH ×4 (07:37→20:50)
[2019-03-25] MEDS: INSULIN LISPRO 100 UNIT/ML SUB-Q SCH ×4 (08:25→21:59)
[2019-03-25] MEDS: metFORMIN 500 MG TAB PO SCH ×2 (08:25→18:05)
[2019-03-25] MEDS: LEVODOPA PO SCH ×2 (09:25→21:59)
[2019-03-25] MEDS: CARBIDOPA PO SCH ×2 (09:25→21:59)
[2019-03-25] MEDS: FUROSEMIDE 40 MG TAB PO SCH (09:26)
[2019-03-25] MEDS: atenoloL 50 MG TAB PO SCH (09:26)
[2019-03-25] MEDS: FLUTICASONE PROPIONATE NASAL SPRAY 16 GM NS SCH (09:26)
[2019-03-25] MEDS: PANTOPRAZOLE 40 MG TAB PO SCH (09:27)
[2019-03-25] MEDS: FENOFIBRATE 145 MG TAB PO SCH (09:27)
[2019-03-25] MEDS: LISINOPRIL 40 MG TAB PO SCH (09:27)
[2019-03-25] MEDS: ACETAMINOPHEN 325 MG TAB PO PRN ×3 (12:41→21:58)
--- NOTE | 2019-03-25 14:52 | Progress Note ---
Assessment and Plan Assessment and plan: --Acute hypoxic respiratory failure; patient in mild distress Oxygen titrate O2 sats to more than 90%, using accessory muscles Nebulizers, IV steroids, IV antibiotics, inhalation steroids Cough medicine --Acute exacerbation of bronchial asthma Oxygen, duo nebs, IV steroids, IV antibiotics Supportive care --Acute bronchitis; productive cough. bronchodilators, IV antibiotics, cough medicine --Hypertension; moderate control Continue current antihypertensives and PRN medications --Morbid obesity; BMI 43.1 Needs weight reduction when medically stable --Possible obstructive sleep apnea; CPAP BiPAP at night as needed, patient needs outpatient sleep study To rule out OSCAR --DVT prophylaxis; Lovenox Monitor closely and adjust management as needed Plan of care reviewed with the patient and her nurse Disposition; discharge home when medically stable Evaluate for home oxygen at discharge History Interval history: Patient seen and examined medical records reviewed Admitted with acute on chronic respiratory failure With severe wheezing and shortness of breath and hypoxia Patient feels slightly better, continues to have mild to moderate shortness of b reath With accessory muscle usage Complains of cough productive Vital signs noted Hospitalist Physical - Constitutional Vitals: Temp Pulse Resp BP Pulse Ox 98.7 F 96 H 19 116/64 97 03/25/19 05:14 03/25/19 12:48 03/25/19 12:48 03/25/19 12:48 03/25/19 07:37 General appearance: Present: mild distress, well-nourished, obese (Morbidly obese), other (Using accessory muscles of respiration) - Neck Neck: Present: supple, normal ROM - Respiratory Respiratory effort: labored Respiratory: bilateral: diminished, rhonchi, wheezing - Cardiovascular Rhythm: regular Heart Sounds: Present: S1 & S2 - Extremities Extremities: no ischemia, pulses intact - Abdominal General gastrointestinal: soft, non-tender, non-distended - Integumentary Integumentary: Present: clear, warm - Psychiatric Psychiatric: appropriate mood/affect, cooperative - Neurologic Neurologic: CNII-XII intact, moves all extremities Results - Labs CBC & Chem 7: 03/24/19 00:28 03/24/19 00:28 Labs: Laboratory Last Values WBC 11.1 K/mm3 (4.5-11.0) H 03/24/19 00:28 RBC 4.05 M/mm3 (3.65-5.03) 03/24/19 00:28 Hgb 12.6 gm/dl (10.1-14.3) 03/24/19 00:28 Hct 37.0 % (30.3-42.9) 03/24/19 00: MCV 91 fl (79-97) 03/24/19 00: MCH 31 pg (28-32) 03/24/19 00: MCHC 34 % (30-34) 03/24/19: RDW 13.0 % (13.2-15.2) L 03/24/19 00: Plt Count 336 K/mm3 (140-440) 03/24/19 00: Lymph % (Auto) 30.9 % (13.4-35.0) 03/24/19: [place] % (Auto) 6.2 % (0.0-7.3) 03/24/19: Eos % (Auto) 4.1 % (0.0-4.3) 03/24/19: Baso % (Auto) 0.9 % (0.0-1.8) 03/24/19 00: Lymph # 3.4 K/mm3 (1.2-5.4) 03/24/19 00:28 [place] # 0.7 K/mm3 (0.0-0.8) 03/24/19 00: Eos # 0.5 K/mm3 (0.0-0.4) H 03/24/19 00:28 Baso # 0.1 K/mm3 (0.0-0.1) 03/24/19 00: Seg Neutrophils % 57.9 % (40.0-70.0) 03/24/19 00:28 Seg Neutrophils # 6.4 K/mm3 (1.8-7.7) 03/24/19 00:28 PT 12.6 Sec. (12.2-14.9) 03/24/19 04:08 INR 0.95 (0.87-1.13) 03/24/19 04:08 APTT 25.9 Sec. (24.2-36.6) 03/24/19 04:08 Sodium 143 mmol/L (137-145) 03/24/19 00:28 Potassium 3.8 mmol/L (3.6-5.0) 03/24/19 00:28 Chloride 105.4 mmol/L (98-107) 03/24/19 00:28 Carbon Dioxide 25 mmol/L (22-30) 03/24/19 00:28 Anion Gap 16 mmol/L 03/24/19 00:28 BUN 10 mg/dL (7-17) 03/24/19 00:28 Creatinine 0.6 mg/dL (0.7-1.2) L 03/24/19 00:28 Estimated GFR > 60 ml/min 03/24/19 00:28 BUN/Creatinine Ratio 17 % 03/24/19 00:28 Glucose 95 mg/dL (65-100) 03/24/19 00:28 POC Glucose 265 (70-105) H 03/25/19 11:23 Calcium 8.6 mg/dL (8.4-10.2) 03/24/19 00:28 Total Bilirubin 0.20 mg/dL (0.1-1.2) 03/24/19 00:28 AST 17 units/L (5-40) 03/24/19 00:28 ALT 17 units/L (7-56) 03/24/19 00:28 Alkaline Phosphatase 60 units/L (35-129) 03/24/19 00:28 Troponin T < 0.010 ng/mL (0.00-0.029) 03/24/19 02:12 NT-Pro-B Natriuret Pep 27.51 pg/mL (0-900) 03/24/19 04:08 Total Protein 6.3 g/dL (6.3-8.2) 03/24/19 00:28 Albumin 3.7 g/dL (3.9-5) L 03/24/19 00:28 Albumin/Globulin Ratio 1.4 % 03/24/19 00:28 Active Medications - Current Medications Current Medications: Generic Name Dose Route Start Last Admin Trade Name Freq PRN Reason Stop Dose Admin Acetaminophen 650 mg 03/25/19 10:22 03/25/19 12:41 Tylenol PO 650 mg Q4H PRN Administration Pain, Mild (1-3) Albuterol 2.5 mg 03/24/19 14:00 Proventil IH Q6HRT PRN Shortness Of Breath Albuterol/Ipratropium 1 ampul 03/24/19 12:00 03/25/19 11:48 Duoneb *Not For Prn Use* IH 1 ampul QIDRT WALTER Administration Atenolol 100 mg 03/24/19 10:00 03/25/19 09:26 Tenormin PO 100 mg QDAY WALTER Administration Benzonatate 100 mg 03/24/19 08:09 03/24/19 18:03 Tessalon Perles PO 100 mg Q8HR PRN Administration Cough Budesonide 0.5 mg 03/24/19 20:00 03/25/19 07:37 Pulmicort IH 0.5 mg Q12HRT WALTER Administration Carbidopa/Levodopa 1 each 03/24/19 10:00 03/25/19 09:25 Sinemet Er PO 1 each BID WALTER Administration Enoxaparin Sodium 40 mg 03/24/19 22:00 03/24/19 22:27 Enoxaparin SUB-Q 40 mg QDAY@2200 WALTER Administration Fenofibrate 145 mg 03/24/19 10:00 03/25/19 09:27 Tricor PO 145 mg QDAY WALTER Administration Fluticasone Propionate 100 mcg 03/24/19 12:00 03/25/19 09:26 Flonase NS 100 mcg QDAY WALTER Administration Furosemide 40 mg 03/24/19 10:00 03/25/19 09:26 Lasix PO 40 mg QDAY WALTER Administration Hydroxyzine HCl 25 mg 03/24/19 08:09 03/24/19 18:04 Atarax PO 25 mg BID PRN Administration Itching Levofloxacin/Dextrose 750 mg in 150 mls @ 100 mls/hr 03/24/19 10:00 03/25/19 09:27 Levaquin 750mg/150ml IV 100 mls/hr Q24HR WALTER Administration Protocol Insulin Human Lispro 0 unit 03/24/19 11:30 03/25/19 12:39 Humalog SUB-Q 4 unit ACHS [facility] Administration Protocol Lisinopril 40 mg 03/24/19 10:00 03/25/19 09:27 Zestril PO 40 mg QDAY WALTER Administration Loratadine 10 mg 03/24/19 08:22 Claritin PO DAILY PRN ALLERGY SYMPTOMS Meclizine HCl 25 mg 03/24/19 08:09 Antivert PO TID PRN Vertigo Metformin HCl 500 mg 03/24/19 08:30 03/25/19 08:25 Glucophage PO 500 mg BIDDIAB WALTER Administration Methylprednisolone Sodium Succinate 80 mg 03/24/19 10:00 03/25/19 12:39 Solu-Medrol IV 80 mg Q6HR WALTER Administration Miscellaneous Medication 20 mg 03/24/19 10:00 Glatiramer Acetate [Glatiramer Acetate] SQ QDAY WALTER Pantoprazole Sodium 40 mg 03/24/19 10:00 03/25/19 09:27 Protonix PO 40 mg DAILY WALTER Administration
[2019-03-25] MEDS: guaiFENesin DM 200/20 MG ORAL LIQD 10 ML PO PRN (21:58)
[2019-03-25] MEDS: ENOXAPARIN 40 MG/0.4 ML INJ SUB-Q SCH (22:00)
[2019-03-26] MEDS ORDERED: ALPRAZolam 0.25 MG TAB PO ONE (00:15)
[2019-03-26] MEDS: guaiFENesin DM 200/20 MG ORAL LIQD 10 ML PO PRN ×2 (05:44→22:09)
[2019-03-26] MEDS: methylPREDNISolone Sod Succinate 125 MG/2 ML INJ IV SCH ×4 (05:44→23:14)
[2019-03-26] MEDS: ACETAMINOPHEN 325 MG TAB PO PRN (05:49)
[2019-03-26] MEDS: IPRATROPIUM/ALBUTEROL SULFATE 3 ML AMPUL.NEB IH SCH ×4 (07:40→21:21)
[2019-03-26] MEDS: BUDESONIDE 0.5 MG/2 ML NEBU IH SCH ×2 (07:40→21:21)
[2019-03-26] MEDS: FLUTICASONE PROPIONATE NASAL SPRAY 16 GM NS SCH (09:10)
[2019-03-26] MEDS: PANTOPRAZOLE 40 MG TAB PO SCH (09:11)
[2019-03-26] MEDS: LISINOPRIL 40 MG TAB PO SCH (09:11)
[2019-03-26] MEDS: INSULIN LISPRO 100 UNIT/ML SUB-Q SCH ×4 (09:11→22:14)
[2019-03-26] MEDS: FUROSEMIDE 40 MG TAB PO SCH (09:12)
[2019-03-26] MEDS: atenoloL 50 MG TAB PO SCH (09:12)
[2019-03-26] MEDS: FENOFIBRATE 145 MG TAB PO SCH (09:12)
[2019-03-26] MEDS: CARBIDOPA PO SCH ×2 (09:12→22:10)
[2019-03-26] MEDS: LEVODOPA PO SCH ×2 (09:12→22:10)
[2019-03-26] MEDS: metFORMIN 500 MG TAB PO SCH ×2 (09:13→18:01)
--- NOTE | 2019-03-26 18:06 | Progress Note ---
Assessment and Plan Assessment and plan: --Acute exacerbation of bronchial asthma Oxygen, duo nebs, decrease IV steroids, IV antibiotics Supportive care --Acute bronchitis; productive cough. bronchodilators, IV antibiotics, cough medicine --Acute hypoxic respiratory failure; patient in mild distress Oxygen titrate O2 sats to more than 90%, using accessory muscles Nebulizers, IV steroids, IV antibiotics, inhalation steroids Cough medicine --Hypertension; moderate control Continue current antihypertensives and PRN medications --Morbid obesity; BMI 43.1 Needs weight reduction when medically stable --Possible obstructive sleep apnea; CPAP BiPAP at night as needed, patient needs outpatient sleep study To rule out OSCAR --DVT prophylaxis; Lovenox Monitor closely and adjust management as needed Plan of care reviewed with the patient and her nurse Disposition; discharge home when medically stable Evaluate for home oxygen at discharge History Interval history: Patient continues to have wheezing, and shortness of breath Complains of some headache Anxious, in mild distress Alert awake oriented x3 Vital signs reviewed Hospitalist Physical - Constitutional Vitals: Temp Pulse Resp BP Pulse Ox 98.0 F 92 H 22 119/63 94 03/26/19 11:57 03/26/19 15:51 03/26/19 15:51 03/26/19 11:57 03/26/19 11:57 General appearance: Present: mild distress, well-nourished, obese (Morbidly obes e) - EENT Eyes: Present: PERRL, EOM intact - Neck Neck: Present: supple, normal ROM - Respiratory Respiratory effort: normal Respiratory: bilateral: diminished, wheezing, negative: rales, rhonchi - Cardiovascular Rhythm: regular Heart Sounds: Present: S1 & S2 - Extremities Extremities: no ischemia, No edema - Abdominal General gastrointestinal: soft, non-tender, non-distended, normal bowel sounds - Integumentary Integumentary: Present: clear, warm - Psychiatric Psychiatric: appropriate mood/affect, cooperative - Neurologic Neurologic: CNII-XII intact, moves all extremities Results - Labs CBC & Chem 7: 03/24/19 00:28 03/24/19 00:28 Labs: Laboratory Last Values WBC 11.1 K/mm3 (4.5-11.0) H 03/24/19 00:28 RBC 4.05 M/mm3 (3.65-5.03) 03/24/19 00:28 Hgb 12.6 gm/dl (10.1-14.3) 03/24/19 00:28 Hct 37.0 % (30.3-42.9) 03/24/19 00:28 MCV 91 fl (79-97) 03/24/19 00:28 MCH 31 pg (28-32) 03/24/19 00:28 MCHC 34 % (30-34) 03/24/19 00: RDW 13.0 % (13.2-15.2) L 03/24/19 00:28 Plt Count 336 K/mm3 (140-440) 03/24/19 00:28 Lymph % (Auto) 30.9 % (13.4-35.0) 03/24/19:28 [place] % (Auto) 6.2 % (0.0-7.3) 03/24/19 00:28 Eos % (Auto) 4.1 % (0.0-4.3) 03/24/19 00:28 Baso % (Auto) 0.9 % (0.0-1.8) 03/24/19 00:28 Lymph # 3.4 K/mm3 (1.2-5.4) 03/24/19 00:28 [place] # 0.7 K/mm3 (0.0-0.8) 03/24/19 00:28 Eos # 0.5 K/mm3 (0.0-0.4) H 03/24/19 00:28 Baso # 0.1 K/mm3 (0.0-0.1) 03/24/19 00:28 Seg Neutrophils % 57.9 % (40.0-70.0) 03/24/19 00:28 Seg Neutrophils # 6.4 K/mm3 (1.8-7.7) 03/24/19 00:28 PT 12.6 Sec. (12.2-14.9) 03/24/19 04:08 INR 0.95 (0.87-1.13) 03/24/19 04:08 APTT 25.9 Sec. (24.2-36.6) 03/24/19 04:08 Sodium 143 mmol/L (137-145) 03/24/19 00:28 Potassium 3.8 mmol/L (3.6-5.0) 03/24/19 00:28 Chloride 105.4 mmol/L (98-107) 03/24/19 00:28 Carbon Dioxide 25 mmol/L (22-30) 03/24/19 00:28 Anion Gap 16 mmol/L 03/24/19 00:28 BUN 10 mg/dL (7-17) 03/24/19 00:28 Creatinine 0.6 mg/dL (0.7-1.2) L 03/24/19 00:28 Estimated GFR > 60 ml/min 03/24/19 00:28 BUN/Creatinine Ratio 17 % 03/24/19 00:28 Glucose 95 mg/dL (65-100) 03/24/19 00:28 POC Glucose 196 (70-105) H 03/26/19 16:37 Calcium 8.6 mg/dL (8.4-10.2) 03/24/19 00:28 Total Bilirubin 0.20 mg/dL (0.1-1.2) 03/24/19 00:28 AST 17 units/L (5-40) 03/24/19 00:28 ALT 17 units/L (7-56) 03/24/19 00:28 Alkaline Phosphatase 60 units/L (35-129) 03/24/19 00:28 Troponin T < 0.010 ng/mL (0.00-0.029) 03/24/19 02:12 NT-Pro-B Natriuret Pep 27.51 pg/mL (0-900) 03/24/19 04:08 Total Protein 6.3 g/dL (6.3-8.2) 03/24/19 00:28 Albumin 3.7 g/dL (3.9-5) L 03/24/19 00:28 Albumin/Globulin Ratio 1.4 % 03/24/19 00:28 Active Medications - Current Medications Current Medications: Generic Name Dose Route Start Last Admin Trade Name Freq PRN Reason Stop Dose Admin Acetaminophen 650 mg 03/25/19 10:22 03/26/19 05:49 Tylenol PO 650 mg Q4H PRN Administration Pain, Mild (1-3) Albuterol 2.5 mg 03/24/19 14:00 Proventil IH Q6HRT PRN Shortness Of Breath Albuterol/Ipratropium 1 ampul 03/24/19 12:00 03/26/19 15:51 Duoneb *Not For Prn Use* IH 1 ampul QIDRT WALTER Administration Alprazolam 0.25 mg 03/26/19 17:57 Xanax PO 03/26/19 17:58 QHS ONE Atenolol 100 mg 03/24/19 10:00 03/26/19 09:12 Tenormin PO 100 mg QDAY WALTER Administration Benzonatate 100 mg 03/24/19 08:09 03/24/19 18:03 Tessalon Perles PO 100 mg Q8HR PRN Administration Cough Budesonide 0.5 mg 03/24/19 20:00 03/26/19 07:40 Pulmicort IH 0.5 mg Q12HRT WALTER Administration Carbidopa/Levodopa 1 each 03/24/19 10:00 03/26/19 09:12 Sinemet Er PO 1 each BID WALTER Administration Enoxaparin Sodium 40 mg 03/24/19 22:00 03/25/19 22:00 Enoxaparin SUB-Q 40 mg QDAY@2200 WALTER Administration Fenofibrate 145 mg 03/24/19 10:00 03/26/19 09:12 Tricor PO 145 mg QDAY WALTER Administration Fluticasone Propionate 100 mcg 03/24/19 12:00 03/26/19 09:10 Flonase NS 100 mcg QDAY WALTER Administration Furosemide 40 mg 03/24/19 10:00 03/26/19 09:12 Lasix PO 40 mg QDAY WALTER Administration Guaifenesin 20 ml 03/25/19 14:57 03/26/19 05:44 Guaifenesin Dm Syrup PO 20 ml Q4H PRN Administration Cough Hydroxyzine HCl 25 mg 03/24/19 08:09 03/24/19 18:04 Atarax PO 25 mg BID PRN Administration Itching Levofloxacin/Dextrose 750 mg in 150 mls @ 100 mls/hr 03/24/19 10:00 03/26/19 09:44 Levaquin 750mg/150ml IV 100 mls/hr Q24HR WALTER Administration Protocol Insulin Human Lispro 0 unit 03/24/19 11:30 03/26/19 18:01 Humalog SUB-Q 2 unit ACHS WALTER Administration Protocol Lisinopril 40 mg 03/24/19 10:00 03/26/19 09:11 Zestril PO 40 mg QDAY WALTER Administration Loratadine 10 mg 03/24/19 08:22 Claritin PO DAILY PRN ALLERGY SYMPTOMS Meclizine HCl 25 mg 03/24/19 08:09 Antivert PO TID PRN Vertigo Metformin HCl 500 mg 03/24/19 08:30 03/26/19 18:01 Glucophage PO 500 mg BIDDIAB WALTER Administration Methylprednisolone Sodium Succinate 80 mg 03/24/19 10:00 03/26/19 12:20 Solu-Medrol IV 80 mg Q6HR WALTER Administration Miscellaneous Medication 20 mg 03/24/19 10:00 Glatiramer Acetate [Glatiramer Acetate] SQ QDAY WALTER Oxycodone/Acetaminophen 1 tab 03/26/19 17:57 Percocet 5/325 PO Q8H PRN Pain, Moderate (4-6) Pantoprazole Sodium 40 mg 03/24/19 10:00 03/26/19 09:11 Protonix PO 40 mg DAILY WALTER Administration
[2019-03-26] MEDS: oxyCODONE /ACETAMINOPHEN 5-325MG TAB PO PRN (18:33)
[2019-03-26] MEDS ORDERED: ALPRAZolam 0.5 MG TAB PO ONE (22:00)
[2019-03-26] MEDS: ENOXAPARIN 40 MG/0.4 ML INJ SUB-Q SCH (22:10)
[2019-03-27] MEDS: methylPREDNISolone Sod Succinate 125 MG/2 ML INJ IV SCH ×3 (06:45→17:45)
[2019-03-27] MEDS: oxyCODONE /ACETAMINOPHEN 5-325MG TAB PO PRN ×2 (06:50→20:23)
[2019-03-27] MEDS: BUDESONIDE 0.5 MG/2 ML NEBU IH SCH ×2 (07:45→21:26)
[2019-03-27] MEDS: IPRATROPIUM/ALBUTEROL SULFATE 3 ML AMPUL.NEB IH SCH ×4 (07:45→21:26)
[2019-03-27] MEDS: INSULIN LISPRO 100 UNIT/ML SUB-Q SCH ×4 (09:03→22:22)
[2019-03-27] MEDS: metFORMIN 500 MG TAB PO SCH ×2 (09:03→17:43)
[2019-03-27] MEDS: CARBIDOPA PO SCH ×2 (10:44→22:20)
[2019-03-27] MEDS: LEVODOPA PO SCH ×2 (10:44→22:20)
[2019-03-27] MEDS: atenoloL 50 MG TAB PO SCH (10:46)
[2019-03-27] MEDS: LISINOPRIL 40 MG TAB PO SCH (10:47)
[2019-03-27] MEDS: FUROSEMIDE 40 MG TAB PO SCH (10:48)
[2019-03-27] MEDS: FENOFIBRATE 145 MG TAB PO SCH (10:48)
[2019-03-27] MEDS: FLUTICASONE PROPIONATE NASAL SPRAY 16 GM NS SCH (10:50)
[2019-03-27] MEDS: ACETAMINOPHEN 325 MG TAB PO PRN (10:55)
[2019-03-27] MEDS: PANTOPRAZOLE 40 MG TAB PO SCH (10:55)
--- NOTE | 2019-03-27 18:29 | Progress Note ---
Assessment and Plan Assessment and plan: --Acute hypoxic respiratory failure; patient in mild distress Oxygen titrate O2 sats to more than 90%, using accessory muscles Nebulizers, IV steroids, IV antibiotics, inhalation steroids Cough medicine --Acute exacerbation of bronchial asthma Oxygen, duo nebs, decrease IV steroids, IV antibiotics Supportive care --Acute bronchitis; productive cough. bronchodilators, IV antibiotics, cough medicine --Hypertension; moderate control Continue current antihypertensives and PRN medications --Morbid obesity; BMI 43.1 Needs weight reduction when medically stable --Possible obstructive sleep apnea; CPAP BiPAP at night as needed, patient needs outpatient sleep study To rule out OSCAR --DVT prophylaxis; Lovenox Monitor closely and adjust management as needed Plan of care reviewed with the patient and her nurse Disposition; discharge home when medically stable Evaluate for home oxygen at discharge History Interval history: Patient seen and examined this morning medical records reviewed Patient feels slightly better, continue has to have severe wheeze And shortness of breath, mild cough productive. In mild distress Patient's O2 sats significantly improved Alert awake oriented Vital signs noted Hospitalist Physical - Constitutional Vitals: Temp Pulse Resp BP Pulse Ox 98.5 F 83 20 142/71 97 03/27/19 04:44 03/27/19 17:01 03/27/19 17:01 03/27/19 10:47 03/27/19 07:45 General appearance: Present: mild distress, well-nourished, obese (Morbidly obese) - EENT Eyes: Present: PERRL, EOM intact - Neck Neck: Present: supple, normal ROM - Respiratory Respiratory effort: labored (Mild) Respiratory: bilateral: diminished, wheezing, negative: rales, rhonchi - Cardiovascular Rhythm: regular Heart Sounds: Present: S1 & S2 - Extremities Extremities: no ischemia, No edema - Abdominal General gastrointestinal: soft, non-tender, non-distended, normal bowel sounds - Integumentary Integumentary: Present: clear, warm - Psychiatric Psychiatric: appropriate mood/affect, cooperative - Neurologic Neurologic: CNII-XII intact, moves all extremities Results - Labs CBC & Chem 7: 03/24/19 00:28 03/24/19 00:28 Labs: Laboratory Last Values WBC 11.1 K/mm3 (4.5-11.0) H 03/24/19 00:28 RBC 4.05 M/mm3 (3.65-5.03) 03/24/19 00:28 Hgb 12.6 gm/dl (10.1-14.3) 03/24/19 00:28 Hct 37.0 % (30.3-42.9) 03/24/19 00:28 MCV 91 fl (79-97) 03/24/19 00: MCH 31 pg (28-32) 03/24/19 00: MCHC 34 % (30-34) 03/24/19 00:28 RDW 13.0 % (13.2-15.2) L 03/24/19 00:28 Plt Count 336 K/mm3 (140-440) 03/24/19 00: Lymph % (Auto) 30.9 % (13.4-35.0) 03/24/19 00:28 [place] % (Auto) 6.2 % (0.0-7.3) 03/24/19 00: Eos % (Auto) 4.1 % (0.0-4.3) 03/24/19 00:28 Baso % (Auto) 0.9 % (0.0-1.8) 03/24/19 00:28 Lymph # 3.4 K/mm3 (1.2-5.4) 03/24/19 00:28 [place] # 0.7 K/mm3 (0.0-0.8) 03/24/19 00:28 Eos # 0.5 K/mm3 (0.0-0.4) H 03/24/19 00:28 Baso # 0.1 K/mm3 (0.0-0.1) 03/24/19 00:28 Seg Neutrophils % 57.9 % (40.0-70.0) 03/24/19 00:28 Seg Neutrophils # 6.4 K/mm3 (1.8-7.7) 03/24/19 00:28 PT 12.6 Sec. (12.2-14.9) 03/24/19 04:08 INR 0.95 (0.87-1.13) 03/24/19 04:08 APTT 25.9 Sec. (24.2-36.6) 03/24/19 04:08 Sodium 143 mmol/L (137-145) 03/24/19 00:28 Potassium 3.8 mmol/L (3.6-5.0) 03/24/19 00:28 Chloride 105.4 mmol/L (98-107) 03/24/19 00:28 Carbon Dioxide 25 mmol/L (22-30) 03/24/19 00:28 Anion Gap 16 mmol/L 03/24/19 00:28 BUN 10 mg/dL (7-17) 03/24/19 00:28 Creatinine 0.6 mg/dL (0.7-1.2) L 03/24/19 00:28 Estimated GFR > 60 ml/min 03/24/19 00:28 BUN/Creatinine Ratio 17 % 03/24/19 00:28 Glucose 95 mg/dL (65-100) 03/24/19 00:28 POC Glucose 195 (70-105) H 03/27/19 16:44 Calcium 8.6 mg/dL (8.4-10.2) 03/24/19 00:28 Total Bilirubin 0.20 mg/dL (0.1-1.2) 03/24/19 00:28 AST 17 units/L (5-40) 03/24/19 00:28 ALT 17 units/L (7-56) 03/24/19 00:28 Alkaline Phosphatase 60 units/L (35-129) 03/24/19 00:28 Troponin T < 0.010 ng/mL (0.00-0.029) 03/24/19 02:12 NT-Pro-B Natriuret Pep 27.51 pg/mL (0-900) 03/24/19 04:08 Total Protein 6.3 g/dL (6.3-8.2) 03/24/19 00:28 Albumin 3.7 g/dL (3.9-5) L 03/24/19 00:28 Albumin/Globulin Ratio 1.4 % 03/24/19 00:28 Active Medications - Current Medications Current Medications: Generic Name Dose Route Start Last Admin Trade Name Freq PRN Reason Stop Dose Admin Acetaminophen 650 mg 03/25/19 10:22 03/27/19 10:55 Tylenol PO 650 mg Q4H PRN Administration Pain, Mild (1-3) Albuterol 2.5 mg 03/24/19 14:00 Proventil IH Q6HRT PRN Shortness Of Breath Albuterol/Ipratropium 1 ampul 03/24/19 12:00 03/27/19 17:01 Duoneb *Not For Prn Use* IH 1 ampul QIDRT WALTER Administration Atenolol 100 mg 03/24/19 10:00 03/27/19 10:46 Tenormin PO 100 mg QDAY WALTER Administration Budesonide 0.5 mg 03/24/19 20:00 03/27/19 07:45 Pulmicort IH 0.5 mg Q12HRT WALTER Administration Carbidopa/Levodopa 1 each 03/24/19 10:00 03/27/19 10:44 Sinemet Er PO 1 each BID WALTER Administration Enoxaparin Sodium 40 mg 03/24/19 22:00 03/26/19 22:10 Enoxaparin SUB-Q 40 mg QDAY@2200 WALTER Administration Fenofibrate 145 mg 03/24/19 10:00 03/27/19 10:48 Tricor PO 145 mg QDAY WALTER Administration Fluticasone Propionate 100 mcg 03/24/19 12:00 03/27/19 10:50 Flonase NS 100 mcg QDAY WALTER Administration Furosemide 40 mg 03/24/19 10:00 03/27/19 10:48 Lasix PO 40 mg QDAY WALTER Administration Guaifenesin 20 ml 03/25/19 14:57 03/26/19 22:09 Guaifenesin Dm Syrup PO 20 ml Q4H PRN Administration Cough Hydroxyzine HCl 25 mg 03/24/19 08:09 03/24/19 18:04 Atarax PO 25 mg BID PRN Administration Itching Levofloxacin/Dextrose 750 mg in 150 mls @ 100 mls/hr 03/24/19 10:00 03/27/19 10:36 Levaquin 750mg/150ml IV 100 mls/hr Q24HR WALTER Administration Protocol Insulin Human Lispro 0 unit 03/24/19 11:30 03/27/19 17:42 Humalog SUB-Q 2 unit ACHS WALTER Administration Protocol Lisinopril 40 mg 03/24/19 10:00 03/27/19 10:47 Zestril PO 40 mg QDAY WALTER Administration Loratadine 10 mg 03/24/19 08:22 Claritin PO DAILY PRN ALLERGY SYMPTOMS Meclizine HCl 25 mg 03/24/19 08:09 Antivert PO TID PRN Vertigo Metformin HCl 500 mg 03/24/19 08:30 03/27/19 17:43 Glucophage PO 500 mg BIDDIAB WALTER Administration Methylprednisolone Sodium Succinate 80 mg 03/24/19 10:00 03/27/19 17:45 Solu-Medrol IV 80 mg Q6HR WALTER Administration Miscellaneous Medication 20 mg 03/24/19 10:00 Glatiramer Acetate [Glatiramer Acetate] SQ QDAY [facility] Oxycodone/Acetaminophen 1 tab 03/26/19 17:57 03/27/19 06:50 Percocet 5/325 PO 1 tab Q8H PRN Administration Pain, Moderate (4-6) Pantoprazole Sodium 40 mg 03/24/19 10:00 03/27/19 10:55 Protonix PO 40 mg DAILY WALTER Administration
[2019-03-27] MEDS ORDERED: ONDANSETRON 4 MG/2 ML INJ IV PRN (21:48)
[2019-03-27] MEDS: ENOXAPARIN 40 MG/0.4 ML INJ SUB-Q SCH (22:22)
[2019-03-27] MEDS: methylPREDNISolone Sod Succinate 40 MG/1 ML INJ IV SCH (22:22)
[2019-03-28] MEDS: methylPREDNISolone Sod Succinate 40 MG/1 ML INJ IV SCH (06:11)
[2019-03-28] MEDS: oxyCODONE /ACETAMINOPHEN 5-325MG TAB PO PRN (06:33)
[2019-03-28 06:39] VITALS: BP 128/62
[2019-03-28] MEDS: BUDESONIDE 0.5 MG/2 ML NEBU IH SCH (07:58)
[2019-03-28] MEDS: IPRATROPIUM/ALBUTEROL SULFATE 3 ML AMPUL.NEB IH SCH ×2 (07:58→11:29)
[2019-03-28] MEDS: INSULIN LISPRO 100 UNIT/ML SUB-Q SCH ×2 (08:54→12:44)
[2019-03-28] MEDS: metFORMIN 500 MG TAB PO SCH (08:55)
[2019-03-28] MEDS: FLUTICASONE PROPIONATE NASAL SPRAY 16 GM NS SCH (10:17)
[2019-03-28] MEDS: FUROSEMIDE 40 MG TAB PO SCH (10:19)
[2019-03-28] MEDS: FENOFIBRATE 145 MG TAB PO SCH (10:19)
[2019-03-28] MEDS: atenoloL 50 MG TAB PO SCH (10:19)
[2019-03-28] MEDS: LISINOPRIL 40 MG TAB PO SCH (10:20)
[2019-03-28] MEDS: PANTOPRAZOLE 40 MG TAB PO SCH (10:20)
[2019-03-28] MEDS: LEVODOPA PO SCH (10:21)
[2019-03-28] MEDS: CARBIDOPA PO SCH (10:21)
--- NOTE | 2019-03-28 11:56 | Discharge Summary ---
Providers - Providers Date of Admission: 03/25/19 15:53 Date of discharge: 03/28/19 Attending physician: BRISA ROPER Primary care physician: [employer] Hospitalization Reason for admission: Ac on chr respiratory failure/acute exacerbation of bronchial asthma Condition: Stable Pertinent studies: Chest x-ray no acute abnormalities Hospital course: 53-year-old morbidly obese female patient with significant past medical history of bronchial asthma congestive heart failure hypertension type 2 diabetes mellitus presented to the emergency room with worsening shortness of breath upper respiratory symptoms and nasal congestion and with productive cough Patient also complains of headache and generalized weakness has been having the symptoms for the past 5 to 7 days worse since yesterday Patient did not get any response with home nebulizers and inhalers,Patient complains of chest tightness and congestion Patient was admitted, managed with high-dose IV steroids nebulizers inhalation steroids empiric antibiotics and supportive care Patient had severe wheezing and shortness of breath, and was using accessory mu scles O2 sats were reasonable level however patient had diffuse wheeze and acute distress Patient's medications optimized, Slowly but gradually improved Today patient is comfortable very minimal wheeze, O2 sats more than 94%, vital signs stable Hemodynamically and clinically stable at discharge on tapering dose of steroids, antihistamines and cough medicine Advised to see pulmonary for outpatient sleep study to rule out obstructive sleep apnea Stable at discharge Discharge diagnosis; --Acute hypoxic respiratory failure; using accessory muscles Received oxygen titrate O2 sats to more than 90%, Nebulizers, IV steroids, IV antibiotics, inhalation steroids Cough medicine Significantly improved, discharged on tapering doses of steroids --Acute exacerbation of bronchial asthma Oxygen, duo nebs, decrease IV steroids, IV antibiotics Symptoms improved --Acute bronchitis; productive cough. bronchodilators, IV antibiotics, cough medicine Discharge on bronchodilators cough medicine, finished 5 days of antibiotics --Hypertension; moderate control Stable --Morbid obesity; BMI 43.1 Advised weight reduction when medically stable --Possible obstructive sleep apnea; CPAP BiPAP at night as needed, patient needs outpatient sleep study, To rule out OSCAR --DVT prophylaxis; Lovenox Today patient is ambulatory Room air resting and ambulatory O2 sats are more than 94% No need for home oxygen Stable at discharge Disposition: - TO HOME OR SELFCARE Time spent for discharge: 32 min Core Measure Documentation - Palliative Care Palliative Care/ Comfort Measures: Not Applicable - Core Measures Any of the following diagnoses?: none Exam - Constitutional Vitals: Temp Pulse Resp BP Pulse Ox 98.1 F 88 20 128/62 96 03/28/19 05:34 03/28/19 10:20 03/28/19 08:20 03/28/19 10:20 03/28/19 08:01 General appearance: Present: no acute distress, well-nourished, obese - EENT Eyes: Present: PERRL, EOM intact - Neck Neck: Present: supple, normal ROM - Respiratory Respiratory effort: normal Respiratory: bilateral: diminished, negative: rales, rhonchi, wheezing - Cardiovascular Rhythm: regular Heart Sounds: Present: S1 & S2 - Extremities Extremities: no ischemia, No edema - Abdominal General gastrointestinal: Present: soft, non-tender, non-distended, normal bowel sounds - Integumentary Integumentary: Present: clear, warm - Musculoskeletal Musculoskeletal: strength equal bilaterally, generalized weakness - Psychiatric Psychiatric: appropriate mood/affect, cooperative - Neurologic Neurologic: CNII-XII intact, moves all extremities Plan Activity: no restrictions Diet: diabetic Additional Instructions: Advise diet modification exercise as tolerated and weight reduction, when stable. Advised to see private spectral scientist/lung doctor for sleep study. To rule out obstructive sleep apnea Follow up with: PRIMARY CARE, [Primary Care Provider] - 3-5 Days INES GHOSH MD [Staff Physician] - 7 Days Prescriptions: Prednisone [predniSONE 10 mg (6-Day Pack, 21 Tabs)] 10 mg PO .TAPER #1 tab.ds.pk Albuterol Sulfate [Proventil Hfa] 6.7 gm IH Q6HR PRN #1 PRN Reason: WHEEZING Benzonatate [Tessalon Perles] 100 mg PO Q8HR PRN #20 cap PRN Reason: Cough
== END 2019-03-28 14:22 | disposition home or self-care (01) | DRG 189 ==
LOC: ED 21:21 → INTOOBSV 03-24 06:33 → 3A 03-24 06:33 → OBSVTOIN 03-25 15:53 → INTOOBSV 03-25 15:53
PROVIDERS: ADMIT Internal Medicine Geriatric Medicine; ATTEND Internal Medicine
DX: J96.01 Acute respiratory failure with hypoxia (principal); J45.41 Moderate persistent asthma with (acute) exacerbation; Z68.42 Body mass index [BMI] 45.0-49.9, adult; J20.9 Acute bronchitis, unspecified; E66.01 Morbid (severe) obesity due to excess calories; I11.0 Hypertensive heart disease with heart failure; I50.9 Heart failure, unspecified; E11.9 Type 2 diabetes mellitus without complications; G47.33 Obstructive sleep apnea (adult) (pediatric); K21.9 Gastro-esophageal reflux disease without esophagitis; M19.90 Unspecified osteoarthritis, unspecified site; G43.909 Migraine, unspecified, not intractable, without status migrainosus; F32.9 Major depressive disorder, single episode, unspecified; G35 Multiple sclerosis; Z71.3 Dietary counseling and surveillance; Z82.49 Family history of ischemic heart disease and other diseases of the circulatory system; Z79.899 Other long term (current) drug therapy; Z86.73 Personal history of transient ischemic attack (TIA), and cerebral infarction without residual deficits; Z72.89 Other problems related to lifestyle
CPT/HCPCS: 36415; 71046; 80053; 82962; 83880; 84484; 85025; 85610; 85730; 93005; 93010; 94640; 94760; G0378; J0696; J1650; J1815; J1885; J1956; J2405; J2920; J2930; J3475

== ENCOUNTER 2019-06-29 14:10 | Emergency (ER) | payer MEDICARE ==
[2019-06-29 14:15] VITALS: BP 140/32
--- NOTE | 2019-06-29 14:42 | Emergency Department Report ---
Upper Respiratory HPI - HPI Chief Complaint: Upper Respiratory Infection Stated Complaint: COUGH/SNEEZING/CP Time Seen by Provider: 06/29/19 14:29 Duration: 1 week URI Symptoms: Rhinorrhea: Yes, Sore Throat: No, Ear Pain: No, Cough: Yes, Shortness of Breath: No, Sick Contacts: No, Unable to Take Fluids: No, Urine Output Abnormal: No, Listless Behavior: No Other History: This is a 53-year-old female nontoxic well in appearnce with no signs of distress presents with dry nonproductive cough x1 week. Patient denies any chest pain, shortness of breathe, fever, chills, nausea, vomiting, headache, stiff neck, abdominal pain, numbness or tingling. Patient denies any recent travels, long car rides, or recent hospital stays. Denies any allergies or significant PMH. - Home Meds and Allergies Home Medications: Home Medications Medication Instructions Recorded Confirmed Last Taken Carbidopa/Levodopa ER 50-200 1 each PO BID 05/19/15 03/24/19 Unknown [Sinemet ER 50/200] Fenofibrate [Tricor] 145 mg PO QDAY 05/19/15 03/24/19 Unknown Furosemide [Lasix TAB] 40 mg PO QDAY 05/19/15 03/24/19 Unknown lisinopriL [Zestril TAB] 40 mg PO QDAY 05/19/15 03/24/19 Unknown metFORMIN [Glucophage] 500 mg PO BID 05/19/15 03/24/19 Unknown Atenolol [Tenormin] 100 mg PO DAILY 03/24/19 03/24/19 Unknown Fluticasone [Flonase] 2 spray NS QDAY 03/24/19 03/24/19 Unknown Glatiramer Acetate 20 mg SQ QDAY 03/24/19 03/24/19 Unknown Ipratropium (Nf) [Atrovent HFA 2 puff IH Q6HR 03/24/19 03/24/19 Unknown 17MCG/PUFF] Loratadine 10 mg PO QDAY PRN 03/24/19 03/24/19 Unknown Meclizine [Antivert] 25 mg PO TID PRN 03/24/19 03/24/19 Unknown Omeprazole 40 mg PO QDAY 03/24/19 03/24/19 Unknown hydrOXYzine HCL [Atarax] 25 mg PO BID PRN 03/24/19 03/24/19 Unknown Previous Rx's Medication Instructions Recorded Last Taken Type Albuterol Sulfate [Proventil Hfa] 6.7 gm IH Q6HR PRN #1 03/28/19 Unknown Rx Benzonatate [Tessalon Perles] 100 mg PO Q8HR PRN #20 cap 03/28/19 Unknown Rx Prednisone [predniSONE 10 mg 10 mg PO .TAPER #1 tab.ds.pk 03/28/19 Unknown Rx (6-Day Pack, 21 Tabs)] Allergies/Adverse Reactions: Allergies Allergy/AdvReac Type Severity Reaction Status Date / Time No Known Allergies Allergy Verified 04/07/14 21:17 ED Review of Systems ROS: Stated complaint: COUGH/SNEEZING/CP Other details as noted in HPI Constitutional: denies: chills, fever Eyes: denies: eye pain, eye discharge, vision change ENT: denies: ear pain, throat pain Respiratory: cough. denies: shortness of breath, wheezing Cardiovascular: denies: chest pain, palpitations Endocrine: no symptoms reported Gastrointestinal: denies: abdominal pain, nausea, diarrhea Genitourinary: denies: urgency, dysuria, discharge Musculoskeletal: denies: back pain, joint swelling, arthralgia Skin: denies: rash, lesions Neurological: denies: headache, weakness, paresthesias Psychiatric: denies: anxiety, depression Hematological/Lymphatic: denies: easy bleeding, easy bruising ED Past Medical Hx - Past Medical History Previous Medical History?: Yes Hx Hypertension: Yes Hx CVA: Yes Hx Congestive Heart Failure: No Hx Diabetes: Yes Hx Deep Vein Thrombosis: No Hx Pulmonary Embolism: No Hx GERD: Yes Hx Arthritis: Yes (knees, feet, and spinal) Hx Headaches / Migraines: Yes Hx Psychiatric Treatment: Yes (Depression) Hx Asthma: Yes Hx COPD: No Hx Tuberculosis: No Hx HIV: No Additional medical history: Hyperlipidemia, Multiple Sclerosis, Sleep apnea, MVP, Restless Leg Syndrome - Surgical History Hx Coronary Stent: No Hx Open Heart Surgery: No Hx Pacemaker: No Hx Internal Defibrillator: No Hx Cholecystectomy: Yes Hx Appendectomy: No Hx Breast Surgery: No Additional Surgical History: C-sections X2 - Social History Smoking Status: Never Smoker Substance Use Type: None - Medications Home Medications: Home Medications Medication Instructions Recorded Confirmed Last Taken Type Carbidopa/Levodopa ER 50-200 1 each PO BID 05/19/15 03/24/19 Unknown History [Sinemet ER 50/200] Fenofibrate [Tricor] 145 mg PO QDAY 05/19/15 03/24/19 Unknown History Furosemide [Lasix TAB] 40 mg PO QDAY 05/19/15 03/24/19 Unknown History lisinopriL [Zestril TAB] 40 mg PO QDAY 05/19/15 03/24/19 Unknown History metFORMIN [Glucophage] 500 mg PO BID 05/19/15 03/24/19 Unknown History Atenolol [Tenormin] 100 mg PO DAILY 03/24/19 03/24/19 Unknown History Fluticasone [Flonase] 2 spray NS QDAY 03/24/19 03/24/19 Unknown History Glatiramer Acetate 20 mg SQ QDAY 03/24/19 03/24/19 Unknown History Ipratropium (Nf) [Atrovent HFA 2 puff IH Q6HR 03/24/19 03/24/19 Unknown History 17MCG/PUFF] Loratadine 10 mg PO QDAY PRN 03/24/19 03/24/19 Unknown History Meclizine [Antivert] 25 mg PO TID PRN 03/24/19 03/24/19 Unknown History Omeprazole 40 mg PO QDAY 03/24/19 03/24/19 Unknown History hydrOXYzine HCL [Atarax] 25 mg PO BID PRN 03/24/19 03/24/19 Unknown History Albuterol Sulfate [Proventil Hfa] 6.7 gm IH Q6HR PRN #1 03/28/19 Unknown Rx Benzonatate [Tessalon Perles] 100 mg PO Q8HR PRN #20 cap 03/28/19 Unknown Rx Prednisone [predniSONE 10 mg 10 mg PO .TAPER #1 tab.ds.pk 03/28/19 Unknown Rx (6-Day Pack, 21 Tabs)] ED Bronchiolitis Physical Exam - Exam General: Vital signs noted. No distress. Alert and acting appropriately. HEENT: No Pharyngeal Erythema, No Conjuctival Injection, No Dry Mucous Membranes, No Rhinorrhea Ear: Neither TM Bulge, Neither TM Erythema, Neither EAC Discharge Neck: No Adenopathy, No Rigidity Lungs: Yes Clear Lung Sounds, Yes Good Air Exchange, No Wheezes, No Stridor, No Cough, No Nasal Flaring, No Retractions, No Use of Accessory Muscles Heart: Yes Regular, No Murmur Abdomen: Yes Normal Bowel Sounds, No Tenderness, No Peritoneal Signs Skin: No Rash, No Eczema Neurologic: Alert and oriented, no deficits. Musculoskeletal: Unremarkable. ED Physical Exam - General Limitations: No Limitations ED Course Vital Signs 06/29/19 14:14 Temperature 97.6 F Pulse Rate 69 Respiratory 18 Rate Blood Pressure 140/32 O2 Sat by Pulse 97 Oximetry - Reevaluation(s) Reevaluation #1: 06/29/19 14:40 Patient is speaking in full sentences with no signs of distress noted. ED Medical Decision Making - Medical Decision Making 53-year-old female that presents with viral bronchitis like symptoms. Patient is stable and was examined by me. Patient does not meet COVID-19 precautions but patient was educated and instructed to self quaratine if symptoms do occur. Patient was educated on OTC suppurative care and medications. Vital signs are stable. Patient was instructed to Follow-up with a primary care doctor in 3-5 days or if symptoms worsen and continue return to emergency room as soon as possible. At time of discharge, the patient does not seem toxic or ill in appearance. No acute signs of distress noted. Patient agrees to discharge treatment plan of care. No further questions noted by the patient. Critical care attestation.: If time is entered above; I have spent that time in minutes in the direct care of this critically ill patient, excluding procedure time. ED Disposition Clinical Impression: Viral bronchitis Disposition: Z-07 MED SCREENING EXAM-LEFT Is pt being admited?: No Does the pt Need Aspirin: No Condition: Stable Instructions: Acute Bronchitis (ED) Additional Instructions: Follow-up with a primary care doctor in 3-5 days or if symptoms worsen and continue return to the emergency department as soon as possible. Referrals: YOSVANY OMER MD [Referring] - 3-5 Days VIVIANA PALACIOS MD [Staff Physician] - 3-5 Days [facility] [Outside] - 3-5 Days
== END 2019-06-29 15:05 | disposition left against medical advice (07) ==
LOC: ED 14:10
DX: J20.8 Acute bronchitis due to other specified organisms (principal); I10 Essential (primary) hypertension; E11.9 Type 2 diabetes mellitus without complications; K21.9 Gastro-esophageal reflux disease without esophagitis; G43.909 Migraine, unspecified, not intractable, without status migrainosus; F32.9 Major depressive disorder, single episode, unspecified; J45.909 Unspecified asthma, uncomplicated; E78.5 Hyperlipidemia, unspecified; M17.0 Bilateral primary osteoarthritis of knee; Z90.49 Acquired absence of other specified parts of digestive tract; Z86.73 Personal history of transient ischemic attack (TIA), and cerebral infarction without residual deficits; Z79.899 Other long term (current) drug therapy; Z98.890 Other specified postprocedural states
CPT/HCPCS: 99282

== ENCOUNTER 2020-06-04 14:58 | Emergency (ER) | payer MEDICARE ==
[2020-06-04] MEDS ORDERED: BALANCED SALT IRRIG (BSS) OPHTH SOLN 15 ML OU ONE (15:47)
[2020-06-04] MEDS ORDERED: FLUORESCEIN 1 MG STRIP OP ONE (15:47)
[2020-06-04] MEDS ORDERED: TETRACAINE 0.5% OPHTH SOLN 4ML OU ONE (15:47)
[2020-06-04] MEDS ORDERED: IBUPROFEN 600 MG TAB PO ONE (15:47)
[2020-06-04] MEDS ORDERED: HYDROcodone/ACETAMINOPHEN 7.5-325MG TAB PO ONE (15:49)
--- NOTE | 2020-06-04 15:51 | Emergency Department Report ---
ED Eye Problem HPI - General Chief complaint: Eye Problems Stated complaint: LEFT EYE IRRITATION Time Seen by Provider: 06/04/20 15:47 Source: patient Mode of arrival: Ambulatory Limitations: No Limitations - History of Present Illness Initial comments: 54-year-old -[place] female presents to the emergency room for left eye pain and irritation that started last night. Patient states she felt that her eye was gritty and possible had a foreign body. Patient states she tried flushing her eyes had her family look and see if they are able to see any foreign body which they were not successful. Patient states that she started having some discharge from the eye that was grayish this morning. Patient does wear contacts and removed her contacts and then put them back in and now she can get it out. chief complaint: eye pain, eye redness, vision change -: Last night Onset Description: sudden Location: left eye If Injury: none Eye Symptoms: pain, itching, discharge, photophobia Severity: severe If Pain, Quality: sharp, stabbing Consistency: constant Associated Symptoms: headache Treatments Prior to Arrival: removed contact lens - Related Data Home Medications Medication Instructions Recorded Confirmed Last Taken Carbidopa/Levodopa ER 50-200 1 each PO BID 05/19/15 03/24/19 Unknown [Sinemet ER 50/200] Fenofibrate [Tricor] 145 mg PO QDAY 05/19/15 03/24/19 Unknown Furosemide [Lasix TAB] 40 mg PO QDAY 05/19/15 03/24/19 Unknown lisinopriL [Zestril TAB] 40 mg PO QDAY 05/19/15 03/24/19 Unknown metFORMIN [Glucophage] 500 mg PO BID 05/19/15 03/24/19 Unknown Atenolol [Tenormin] 100 mg PO DAILY 03/24/19 03/24/19 Unknown Fluticasone [Flonase] 2 spray NS QDAY 03/24/19 03/24/19 Unknown Glatiramer Acetate 20 mg SQ QDAY 03/24/19 03/24/19 Unknown Ipratropium (Nf) [Atrovent HFA 2 puff IH Q6HR 03/24/19 03/24/19 Unknown 17MCG/PUFF] Loratadine 10 mg PO QDAY PRN 03/24/19 03/24/19 Unknown Meclizine [Antivert] 25 mg PO TID PRN 03/24/19 03/24/19 Unknown Omeprazole 40 mg PO QDAY 03/24/19 03/24/19 Unknown hydrOXYzine HCL [Atarax] 25 mg PO BID PRN 03/24/19 03/24/19 Unknown Previous Rx's Medication Instructions Recorded Last Taken Type Albuterol Sulfate [Proventil Hfa] 6.7 gm IH Q6HR PRN #1 03/28/19 Unknown Rx Benzonatate [Tessalon Perles] 100 mg PO Q8HR PRN #20 cap 03/28/19 Unknown Rx Prednisone [predniSONE 10 mg 10 mg PO .TAPER #1 tab.ds.pk 03/28/19 Unknown Rx (6-Day Pack, 21 Tabs)] Erythromycin [Erythromycin Ophth 1 applic OU QID 10 Days #1 tube 06/04/20 Unknown Rx Oint] Ibuprofen [Motrin 800 MG tab] 800 mg PO Q8HR PRN #30 tablet 06/04/20 Unknown Rx traMADoL [Ultram 50 MG tab] 50 mg PO Q6HR PRN #12 tablet 06/04/20 Unknown Rx Allergies Allergy/AdvReac Type Severity Reaction Status Date / Time No Known Allergies Allergy Verified 04/07/14 21:17 ED Review of Systems ROS: Stated complaint: LEFT EYE IRRITATION Other details as noted in HPI Comment: All other systems reviewed and negative ED Past Medical Hx - Past Medical History Previous Medical History?: Yes Hx Hypertension: Yes Hx CVA: Yes Hx Congestive Heart Failure: No Hx Diabetes: Yes Hx Deep Vein Thrombosis: No Hx Pulmonary Embolism: No Hx GERD: Yes Hx Arthritis: Yes (knees, feet, and spinal) Hx Headaches / Migraines: Yes Hx Psychiatric Treatment: Yes (Depression) Hx Asthma: Yes Hx COPD: No Hx Tuberculosis: No Hx HIV: No Additional medical history: Hyperlipidemia, Multiple Sclerosis, Sleep apnea, MVP, Restless Leg Syndrome - Surgical History Hx Coronary Stent: No Hx Open Heart Surgery: No Hx Pacemaker: No Hx Internal Defibrillator: No Hx Cholecystectomy: Yes Hx Appendectomy: No Hx Breast Surgery: No Additional Surgical History: C-sections X2 - Social History Smoking Status: Never Smoker Substance Use Type: None - Medications Home Medications: Home Medications Medication Instructions Recorded Confirmed Last Taken Type Carbidopa/Levodopa ER 50-200 1 each PO BID 05/19/15 03/24/19 Unknown History [Sinemet ER 50/200] Fenofibrate [Tricor] 145 mg PO QDAY 05/19/15 03/24/19 Unknown History Furosemide [Lasix TAB] 40 mg PO QDAY 05/19/15 03/24/19 Unknown History lisinopriL [Zestril TAB] 40 mg PO QDAY 05/19/15 03/24/19 Unknown History metFORMIN [Glucophage] 500 mg PO BID 05/19/15 03/24/19 Unknown History Atenolol [Tenormin] 100 mg PO DAILY 03/24/19 03/24/19 Unknown History Fluticasone [Flonase] 2 spray NS QDAY 03/24/19 03/24/19 Unknown History Glatiramer Acetate 20 mg SQ QDAY 03/24/19 03/24/19 Unknown History Ipratropium (Nf) [Atrovent HFA 2 puff IH Q6HR 03/24/19 03/24/19 Unknown History 17MCG/PUFF] Loratadine 10 mg PO QDAY PRN 03/24/19 03/24/19 Unknown History Meclizine [Antivert] 25 mg PO TID PRN 03/24/19 03/24/19 Unknown History Omeprazole 40 mg PO QDAY 03/24/19 03/24/19 Unknown History hydrOXYzine HCL [Atarax] 25 mg PO BID PRN 03/24/19 03/24/19 Unknown History Albuterol Sulfate [Proventil Hfa] 6.7 gm IH Q6HR PRN #1 03/28/19 Unknown Rx Benzonatate [Tessalon Perles] 100 mg PO Q8HR PRN #20 cap 03/28/19 Unknown Rx Prednisone [predniSONE 10 mg 10 mg PO .TAPER #1 tab.ds.pk 03/28/19 Unknown Rx (6-Day Pack, 21 Tabs)] Erythromycin [Erythromycin Ophth 1 applic OU QID 10 Days #1 tube 06/04/20 Unknown Rx Oint] Ibuprofen [Motrin 800 MG tab] 800 mg PO Q8HR PRN #30 tablet 06/04/20 Unknown Rx traMADoL [Ultram 50 MG tab] 50 mg PO Q6HR PRN #12 tablet 06/04/20 Unknown Rx ED Physical Exam - General Limitations: No Limitations General appearance: alert, in no apparent distress - Head Head exam: Present: atraumatic, normocephalic - Eye Eye exam: Present: normal appearance - ENT ENT exam: Present: mucous membranes moist - Respiratory Respiratory exam: Absent: accessory muscle use Critical care attestation.: If time is entered above; I have spent that time in minutes in the direct care of this critically ill patient, excluding procedure time. ED Disposition Clinical Impression: Corneal abrasion due to contact lens Disposition: DC-01 TO HOME OR SELFCARE Is pt being admited?: No Does the pt Need Aspirin: No Condition: Stable Instructions: Corneal Abrasion, [id number] Additional Instructions: Take medication as prescribed. It is very important for you to follow-up with an quality measurement specialist in the next 24 hours. Prescriptions: Erythromycin [Erythromycin Ophth Oint] 1 applic OU QID 10 Days #1 tube Ibuprofen [Motrin 800 MG tab] 800 mg PO Q8HR PRN #30 tablet PRN Reason: Pain , Severe (7-10) traMADoL [Ultram 50 MG tab] 50 mg PO Q6HR PRN #12 tablet PRN Reason: Pain Referrals: THAIS MENDEZ MD [Staff Physician] - 3-[address] [facility] [Provider Group] - 3-5 Days [facility] [Provider Group[facility] - 3-5 Days
== END 2020-06-04 16:48 | disposition home or self-care (01) ==
LOC: ED 14:58
DX: H18.822 Corneal disorder due to contact lens, left eye (principal); I10 Essential (primary) hypertension; E11.9 Type 2 diabetes mellitus without complications; K21.9 Gastro-esophageal reflux disease without esophagitis; G43.909 Migraine, unspecified, not intractable, without status migrainosus; J45.909 Unspecified asthma, uncomplicated; Z98.890 Other specified postprocedural states; Z79.1 Long term (current) use of non-steroidal anti-inflammatories (NSAID); Z79.2 Long term (current) use of antibiotics; Z79.84 Long term (current) use of oral hypoglycemic drugs; Z79.899 Other long term (current) drug therapy
CPT/HCPCS: 99282